=== PATIENT | male | born 1945 | race Caucasian/White ===

== ENCOUNTER 2016-07-11 17:03 | Inpatient (IN) | payer MEDICARE, OTHER ==
--- NOTE | ~2016-07-11 | CN ---
Consultation Report [facility] [address] [place]. [address] NAME: SOM JUSTIN JR : 49 STATUS : ADM IN PAT#: [id number] AGE: 71 ADM/REG DATE : 07/12/16 MR#: [id number] REPORT SERV DATE: 07/13/16 DICTATED BY: ALPHONSO ELIAS DATE: 07/13/16 REPORT STATUS : Draft TRANSCRIBED BY: YNES DATE: 07/13/16 DATE OF CONSULTATION: 07/13/2016 REASON FOR ADMISSION: Presyncope/fatigue/dyspnea. HISTORY OF PRESENT ILLNESS: Mr. Justin is a pleasant 71-year-old gentleman with a history of diabetes, hypertension, hyperlipidemia, and hypothyroidism, who presented to [facility] yesterday with symptoms of presyncope as well as pronounced fatigue and shortness of breath over the past several weeks. He noted that approximately four to five weeks ago, he developed an upper respiratory infection and possibly the flu, with fevers and chills and sweats. These symptoms resolved over a two-week course, however, over the past one to two weeks, he has been feeling extremely tired and unable to complete his day-to-day activities. He does not have any chest pains or pressures as far as his last two weeks of activity, however, today, during his stress test, he had exertion related angina that was relieved at rest. In speaking with him in more detail, he does endorse having exertion related dyspnea as well as worsening of his dizziness. Accordingly, he has limited his physical activities so as not to feel these symptoms. He does have a family history significant for heart disease in his mother, however, details are unknown. He, otherwise has no new complaints and would like to figure out why he is feeling dizzy and almost like he is going to pass out as well as significantly fatigued and short of breath. ALLERGIES: HYPERSENSITIVITY TO NSAIDS, HOWEVER, NOT A TRUE ALLERGY. NO OTHER ALLERGIES. PAST MEDICAL HISTORY: As above. SOCIAL HISTORY: The patient lives at home with his . He functions independently under normal circumstances. He is a former regular drinker, however, now he only drinks socially. Denies drugs or smoking currently. He does have a remote history of two years of smoking. FAMILY HISTORY: Significant for heart disease (unknown details) in his mother who was diagnosed around her early 60s. REVIEW OF SYSTEMS: As above, all other systems otherwise negative. PHYSICAL EXAMINATION: VITAL SIGNS: BP 134/89; HR 82; temperature 97.5, afebrile. GENERAL: Well developed, well nourished, no acute distress. NEURO: Awake, alert and oriented x3; no focal deficits, appropriate mood. HEENT: Moist mucous membranes, anicteric sclerae, no nasal discharge. NECK: No JVD, no carotid bruit. LUNGS: Clear to auscultation bilaterally, no wheezes, rales or rhonchi. CV: Regular rhythm, normal S1/S2, no murmurs, rubs or gallops. ABD: Soft, non-tender, non-distended, no rebound or guarding. EXT: Cool with trace edema in his lower extremities bilaterally with, 1+ peripheral pulses Consultation Report [facility] [address] [place]. [address] NAME: SOM JUSTIN JR : 49 STATUS : ADM IN [facility]#: [id number] AGE: 71 ADM/REG DATE : 07/12/16 MR#: [id number] REPORT SERV DATE: 07/13/16 DICTATED BY: ALPHONSO ELIAS DATE: 07/13/16 REPORT STATUS : Draft TRANSCRIBED BY: YNES DATE: 07/13/16 in his lower extremities bilaterally. SKIN: Warm, dry and intact; no rash. PERTINENT TEST FINDINGS: Potassium 4.0, creatinine 0.79, GFR 106. Magnesium 1.8. White blood cell count 5.1, hemoglobin 13.2, platelets 164. CTA of the chest reviewed by me personally demonstrates coronary calcification in the LAD as well as the left circumflex artery. The right coronary artery is not well visualized. The study was not optimized for coronary assessment. EKG from date of admission shows sinus rhythm with right bundle branch block, left axis deviation, left anterior fascicular block, bifascicular block, inferior infarct. Telemetry without significant events. Stress test from today with moderate risk. Normal perfusion images, however, only reached stage II of exercise. Echocardiogram with normal biventricular function and no significant valvular disease. IMPRESSION AND PLAN: Mr. Justin is a pleasant 71-year-old gentleman with a history of diabetes, hypertension, hyperlipidemia, and newly diagnosed coronary artery disease, as my review of the CTA of his chest this admission with bifascicular block (right bundle branch block and left anterior fascicular block) on EKG, who presents with nonspecified symptoms including presyncope, fatigue, exertion related dyspnea, exertion related dizziness, and not feeling well over the past several weeks that has been progressive in nature. Given his unclear symptoms with atypical as well as typical features and high risk markers including, but not limited to, bifascicular block, presence of coronary calcifications that is significant in the left anterior descending and left circumflex on my review of the CT as well as some exertion related worsening of his dyspnea and dizziness, I do feel that he warrants a definitive arteriogram at this time. I note that he had normal perfusion images on his stress test this morning, however, again this was a very sub-maximal test as he only reached stage II of exercise. Accordingly, I have the following recommendations for problems below: 1. Dyspnea on exertion/dizziness: Plan for coarctation of the aorta with possible percutaneous coronary intervention. I have consulted Urology (Dr. Florian) to provide recommendations with regard to specific anti-platelet agent duration in light of upcoming prostate procedure. Otherwise, risks and benefits of coronary arteriogram have been discussed in detail with the patient and his including, but not limited to myocardial infarction, , stroke, kidney injury, and the patient is amenable with proceeding. I have made him n.p.o. past midnight and scheduled him for this procedure accordingly. 2. Coronary artery disease: New diagnosis as of my review of the CTA of the chest from today. This is not gated study, therefore it is not optimal for coronary assessment. That being said, he does have clear coronary calcifications of his left anterior Consultation Report [facility] [address] [place]. [address] NAME: SOM JUSTIN : 49 STATUS : ADM IN PAT#: [id number] AGE: 71 ADM/REG DATE : 07/12/16 MR#: [id number] REPORT SERV DATE: 07/13/16 DICTATED BY: ALPHONSO ELIAS DATE: 07/13/16 REPORT STATUS : Draft TRANSCRIBED BY: YNES DATE: 07/13/16 descending and left circumflex artery. Continue aspirin as well as Lipitor 20 mg nightly. His lipids will have to be optimized to a new risk level. Otherwise, no further treatment outside of dyspnea on exertion/dizziness. 3. Hypertension: Controlled. 4. Diabetes: Per primary physician. 5. Lightheadedness/presyncope: As per dyspnea on exertion/dizziness. In addition, workup per primary service if noncardiac cause becomes more clear after his arteriogram tomorrow. 6. Bifascicular block: He has findings of a right bundle branch block/left anterior fascicular block/inferior infarct on his EKG. He does not have any atrioventricular block on his tele review or on his EKGs. These are stable problems as of now, and again, underscore the importance of working up dyspnea on exertion/dizziness. VR/MODL Alphonso Elias MD / [id number] CC: MD MARTITA Loja MARGARET
--- NOTE | ~2016-07-11 | DS ---
Discharge Summary [facility] [address] [place]. [address] NAME: SOM JUSTIN JR : 49 STATUS : ADM IN [facility]#: [id number] AGE: 71 ADM/REG DATE : 07/12/16 MR#: [id number] REPORT SERV DATE: 07/16/16 DICTATED BY: DATE: REPORT STATUS : Draft TRANSCRIBED BY: MODL DATE: 07/16/16 ADMISSION DATE: 07/12/2016 DISCHARGE DATE: 07/16/2016 DISCHARGE DIAGNOSES: 1. Presyncopal episodes. 2. Hypertension. 3. Diabetes mellitus type 2. 4. Hypothyroid. 5. Anemia. 6. Hyperlipidemia. 7. Thrombocytopenia. PROCEDURES AND IMAGIN. CT of the brain without contrast on 07/11/2016, showed no acute infarct or hemorrhage. 2. On 07/11/2016, chest PA and lateral showed no acute pathology, this was compared to CTA of the chest that showed no significant emphysema or interstitial disease. 3. On 07/12/2016 carotid ultrasounds showed left and right carotid artery one less than 50% luminal stenosis, right vertebral antegrade, subclavian velocity is 10 3 cm/sec, left vertebral antegrade subclavian velocity 1 19 cm/sec normal. 4. On 07/12/2016, MRI of the brain without contrast showed no acute infarct or bleed, mastoiditis, and some mid brain atrophy. CONSULTATIONS: Dr. Schmidt and Dr. Ortiz with Cardiology. HOSPITAL COURSE: The patient presented to the [facility] ER with symptoms of presyncope, as well as pronounced fatigue, and shortness of breath times several weeks. The patient was previously ill with an upper respiratory infection that included fevers, chills, and sweats over a month ago. Please see H and P dictation from 07/11/2016 by Ken Trejo MD and consultation note from 07/13/[address] Schmidt. During the patient's stay here, he has not had any more episodes of syncope or vertigo. The patient's orthostatic blood pressures remained consistent with lying being 129/72, sitting 136/81, and standing 129/72. The patient was started on Coreg last evening and has had no changes in his symptomology. PHYSICAL EXAMINATION: VITAL SIGNS: Blood pressure 125/77, heart rate is 84, O2 saturation is 95% on room, temperature is 97.7, and respirations are 16. HEENT: Head is atraumatic and normocephalic. Pupils equal, round, reactive to light and accommodation. Sclerae are clear and nonicteric. Good dentition. NECK: No palpable lymphadenopathy or thyromegaly. Neck veins are flat. Neck is supple. CARDIAC: No obvious murmurs, rubs, or gallops. S1 and S2 present. LUNGS: Lungs are clear bilaterally with normal respiratory effort. GASTROINTESTINAL: Abdomen is soft, and nontender with active bowel sounds in all four quadrants. Normal bowel habitus. No palpable organomegaly. EXTREMITIES: No significant edema, clubbing, or cyanosis. Dorsalis pedis and posterior tibial pulses are present and equal bilaterally. Discharge Summary [id number] [place]. [address] NAME: SOM JUSTIN JR : 49 STATUS : ADM IN [facility]#: [id number] AGE: 71 ADM/REG DATE : 07/12/16 MR#: [id number] REPORT SERV DATE: 07/16/16 DICTATED BY: DATE: REPORT STATUS : Draft TRANSCRIBED BY: MODL DATE: 07/16/16 MUSCULOSKELETAL: The patient moves all extremities x4. He is ambulatory without assistance. Denies difficulty with balance. SKIN: Dry and intact with normal color and turgor. NEURO/PSYCH: The patient is alert and oriented x4, pleasant, cooperative. Cranial nerves 2 through 12 are grossly intact. DISCHARGE DIET: The patient is eating well. Discharge diet will be 1800 calorie cardiac diet. DISCHARGE MEDICATIONS: Xanax 0.25 mg daily, aspirin 81 mg daily, Wellbutrin 450 mg daily, Coreg 3.125 mg p.o. b.i.d., Clopidogrel 75 mg daily, cyanocobalamin 1000 mcg daily, Avodart 0.5 mg daily, levothyroxine 50 mcg daily, lisinopril 10 mg daily, melatonin 10 mg daily, Nexium 40 mg twice daily, Flomax 0.4 mg daily, metformin 500 mg twice daily, Lunesta 3 mg daily, and Crestor 20 mg daily. ALLERGIES: THE PATIENT HAS A SENSITIVITY TO NSAIDS AND ASPIRIN. DISCHARGE INSTRUCTIONS: The patient is to follow up in one month with Dr. Schmidt. The patient is to call Dr. Schmidt on Monday to find out whether he is supposed to continue his Plavix as a prescription was not written, so, I have written one for a 10 day, so, this needs to be clarified with Cardiology. The patient is to follow up at the ER if he has any continuing bouts of syncope, chest pain, or other issues, or to call his PCP or Dr. Schmidt. Approximately 25 minutes has been spent coordinating discharge care of this patient including [id number] encounter, summarization of the discharge, and coordinating care of discharge. WALLACE/BURAKL Mariella Villafana NP / [id number] CC: MD MARTITA Hamm MARGARET
--- NOTE | ~2016-07-11 | HP ---
History And Physical [place] [address] [place]. [address] NAME: SOM JUSTIN JR : 49 STATUS : ADM Luis Carlos PAT#: [id number] AGE: 71 ADM/REG DATE : 07/11/16 MR#: [id number] REPORT SERV DATE: 07/12/16 DICTATED BY: KEN ACHARYA DATE: 07/11/16 REPORT STATUS : Draft TRANSCRIBED BY: MODMuriel DATE: 07/11/16 DATE OF ADMISSION: 07/11/2016 CHIEF COMPLAINT: Presyncopal episode. HISTORY OF PRESENT ILLNESS: This is a 71-year-old gentleman with history of hypertension, diabetes, hyperlipidemia, hypothyroidism, presenting with presyncopal episodes. The patient reports that he actually went over a flu about four weeks ago and that is when his episodes started occurring. His flu actually lasted about two weeks and after the 2 weeks, the patient was still short of breath and extremely fatigued and has been having presyncopal episodes and thus, he went to see his PCP. His PCP ordered a chest x-ray, followed by a CTA of the chest which showed mild aneurysmal changes and tortuous aorta as well as evidence for possible pulmonary hypertension. The patient now has a followup appointment with Dr. Ward as well as an echocardiogram that is scheduled to be done as an outpatient tomorrow. The patient went to see his PCP for a followup today and at the office, the patient had a presyncopal episode after taking a deep breath. The patient was thus referred to the ER for further evaluation and care. As far as the pre-syncopal episodes go, it is not related to bodily position, but more related to physical exertion. The patient does not have any chest pains. Denies any fevers or chills. The patient does have occasional palpitations with presyncopal episodes and his main symptom is extreme fatigue. The patient denies shortness of breath per Se, although he does have a mild dyspnea on exertion. In the ER, the patient was found to be afebrile and hemodynamically stable. Initial lab evaluation was all fairly benign. Internal Medicine consultation was requested for admission of the patient to be admitted for further evaluation and care. REVIEW OF SYSTEMS: Patient denies any fevers or chills. Also, 14-point review of systems reviewed and negative other than mentioned above. MEDICATIONS: 1. Xanax 0.25 mg p.o. daily. 2. Aspirin 81 mg p.o. daily. 3. Wellbutrin 450 mg p.o. daily. 4. Vitamin B12 1000 mcg p.o. daily. 5. Vitamin B12 1000 mcg IM every 30 days. 6. Avodart 0.5 mg p.o. daily. 7. Nexium 40 mg p.o. b.i.d. 8. Lunesta 3 mg p.o. at bedtime. 9. Levothyroxine 50 mcg p.o. daily. 10.Lisinopril 10 mg p.o. daily. 11.Melatonin 10 mg p.o. at bedtime. 12.Metformin 500 mg p.o. b.i.d. 13.Crestor 10 mg p.o. at bedtime. 14.Flomax 0.4 mg p.o. daily. History And Physical [address] [address] NAME: SOM JUSTIN VIVIAN ANDERSON : 49 STATUS : ADM Luis Carlos PAT#: [id number] AGE: 71 ADM/REG DATE : 07/11/16 MR#: [id number] REPORT SERV DATE: 07/12/16 DICTATED BY: KEN ACHARYA DATE: 07/11/16 REPORT STATUS : Draft TRANSCRIBED BY: YNES DATE: 07/11/16 ALLERGIES: 1. ASPIRIN. 2. NSAIDS. PAST MEDICAL HISTORY: 1. Hypertension. 2. Hypothyroidism. 3. Diabetes type 2. 4. Hyperlipidemia. 5. BPH. 6. Gastritis. PAST SURGICAL HISTORY: 1. Left shoulder surgery. 2. Hernia repairs. 3. Left knee arthroscopy. FAMILY HISTORY: 1. Heart diseases. 2. Kidney diseases. 3. Colon and breast cancer. 4. Dementia. SOCIAL HISTORY: The patient does not smoke, consumes alcohol rarely. The patient is at home with his and his is at bedside here in the ER. PHYSICAL EXAMINATION: VITAL SIGNS: Temperature 98.4, blood pressure 115/79, pulse 109, respiratory rate is 21 saturating 96% on room air. Patient is alert and oriented x3 with no focal neurologic deficits. GENERAL: The patient is awake, does not appear to be in acute distress, and he is cooperative. NECK: No JVD. No lymphadenopathy. Normal thyroid. CHEST: No midline sternotomy scar and no tenderness to palpation. LUNGS: Clear to auscultation bilaterally with normal respiratory effort on room air. CARDIOVASCULAR: The patient is slightly tachycardic, but otherwise, no murmurs, rubs, or gallops, and PMI is nondisplaced. ABDOMEN: Soft, nontender, with active bowel sounds and no organomegaly. EXTREMITIES: No edema. Normal distal pulses. No calf tenderness. SKIN: Clean, dry, warm, and intact. LABORATORY DATA: Sodium is 137, potassium 4.0, chloride 102, BUN 9, creatinine 0.73, glucose 95, calcium 9.4, magnesium 1.8. White blood cell count is 5.1, hemoglobin 13.4, platelets 182. INR is 1.2. Troponin is less than 0.02. Urinalysis is negative. CT of the head was nonacute. CTA of the chest showed a mild fusiform aneurysmal change of the tortuous ascending thoracic aorta measuring 3.7 cm in diameter. The patient also had tortuous aortic arch and descending thoracic aorta, although there were no aneurysmal changes or dissections there. The patient also was found to have enlarged main pulmonary artery measuring 3.5 cm History And Physical [address] [address] NAME: SOM JUSTIN : 49 STATUS : ADM Luis Carlos PAT#: [id number] AGE: 71 ADM/REG DATE : 07/11/16 MR#: [id number] REPORT SERV DATE: 07/12/16 DICTATED BY: KEN ACHARYA DATE: 07/11/16 REPORT STATUS : Draft TRANSCRIBED BY: MODL DATE: 07/11/16 in diameter consistent with CT evidence of pulmonary arterial hypertension. There were no other acute abnormal findings. CTA of the chest is performed on 06/29/2016. ASSESSMENT AND PLAN: This is a 71-year-old gentleman with history of hypertension, diabetes, hyperlipidemia, presenting with presyncopal episodes. 1. Presyncopal episodes with CTA findings consistent with pulmonary hypertension. 2. Hypertension. 3. Hypothyroidism. 4. Diabetes type 2. 5. Hyperlipidemia. 6. Gastritis. 7. BPH. PLAN: The plan is to admit the patient for observation overnight. The patient will be monitored under telemetry. I will check serial troponins. The patient will be given gentle IV fluid resuscitation and I will also go ahead and check an echocardiogram. I am awaiting the results of the echocardiogram and his telemetry over night. The patient will likely need a Cardiology or Pulmonology consultation. For the rest of stable past medical conditions, including hypertension, diabetes, hypothyroidism, et al., I will continue home medications. Standard DVT prophylaxis. The patient is full code at this time. YSC/YNES Ken Acharya MD / [id number]
[~2016-07-11 17:03] MED LIST: AMB10 PO; AVODART PO; BUPROBAN150 MG; FLOMAX4 PO; GLUCPH PO; LEVOTHROID50 MCG PO; NEXIUM40 PO; NIRAVAM0.25 MG PO; PRIN10 PO; ZOCOR40 PO; [UNRECOGNIZED DRUG - OTHER]; [UNRECOGNIZED DRUG - OTHER]
[2016-07-11 18:02] LABS: BASOPHILS 0.4 %; BASOPHILS ABSOLUTE 0.02 10/3/uL (0.0-0.16); EOSINOPHILS 1.2 %; EOSINOPHILS ABSOLUTE 0.06 10/3/uL (0.0-0.53); ER CBC TAT 0 Hrs 08 Mins; HEMATOCRIT 40.1 % (40.0-51.0); HEMOGLOBIN 13.4 g/dL (13.6-17.8); IMMATURE GRANULOCYTES 0.6 %; IMMATURE GRANULOCYTES ABSOLUTE 0.03 10/3/uL (0.0-0.11); LYMPHOCYTES 34.8 %; LYMPHOCYTES ABSOLUTE 1.77 10/3/uL (0.67-4.30); MANUAL DIFF NO %; MEAN CORPUS HGB CONC 33.4 g/dL (32.0-36.0); MEAN CORPUSCULAR HEMOGLOB 26.3 pg (26.0-34.0); MEAN CORPUSCULAR VOLUME 78.8 fL (80-100); MEAN PLATELET VOLUME 9.4 fL (9.2-13.0); MONOCYTES 7.3 %; MONOCYTES ABSOLUTE 0.37 10/3/uL (0.21-1.20); NEUTROPHILS 55.7 %; NEUTROPHILS ABSOLUTE 2.83 10/3/uL (2.02-8.40); PLATELET COUNT 182 10/3/uL (150-400); RBC DISTRIBUTION WIDTH 14.9 % (12.0-16.0); RED CELL COUNT 5.09 10/6/uL (4.7-6.1); WHITE BLOOD CELLS 5.1 10/3/uL (4.5-10.5)
[2016-07-11 18:09] LABS: INTERNATIONAL NORMAL RATI 1.2 UNITS (-); PARTIAL THROMBO TIME 32.2 SEC (22.5-37.2); PROTIME (NOT ORD) 14.7 SEC (12.0-14.5)
[2016-07-11 18:15] LABS: BUN (BLOOD UREA NITROGEN) 9 MG/DL (6-23); CALCIUM, SERUM 9.4 MG/DL (8.5-10.4); CHEST PAIN PROFILE TAT 0 Hrs 21 Mins; CHLORIDE, SERUM 102 MMOL/L (96-112); CO2 (CARBON DIOXIDE) 27 MMOL/L (24-34); CREATININE 0.73 MG/DL (0.70-1.30); GFR AFRICAN AMERICAN 110 ML/MIN (>=60); GFR NON AFRICAN AMERICAN 95 ML/MIN (>=60); GLUCOSE, SERUM 95 MG/DL (60-99); SODIUM, SERUM 137 MMOL/L (135-148); TROPONIN I <0.02 NG/ML (<0.05)
[2016-07-11 19:13] LABS: ASCORBIC ACID (UR NOT ORDER) NEG (NEG); BILIRUBIN, URINE NEGATIVE (NEG); ER URINALYSIS TAT 0 Hrs 18 Mins; KETONE, URINE NEGATIVE (NEG); LEUKOCYTE ESTERASE(NOT OR NEG (NEG); NITRITE (URINE) NEG (NEG); WBC (NOT ORDERED) (RFLEX) < 1 (0-5)
[2016-07-11] MEDS ORDERED: ASAB PO (20:08)
[2016-07-11] MEDS ORDERED: MELATONIN10 M2 PO (20:09)
[2016-07-11] MEDS ORDERED: B121000P IM (20:09)
[2016-07-11] MEDS ORDERED: LEVOTHYROXIN50 MCG PO (20:09)
[2016-07-11] MEDS ORDERED: CYANO1000T PO (20:09)
[2016-07-11] MEDS ORDERED: NEXIUM40 PO (20:10)
[2016-07-11] MEDS ORDERED: GLUCPH PO (20:10)
[2016-07-11] MEDS ORDERED: FLOMAX4 PO (20:10)
[2016-07-11] MEDS ORDERED: X25 PO (20:10)
[2016-07-11] MEDS ORDERED: CRESTOR10 PO (20:10)
[2016-07-11] MEDS ORDERED: LUNESTA3 MG PO (20:10)
[2016-07-11] MEDS ORDERED: AVODART PO (20:11)
[2016-07-11] MEDS ORDERED: PRIN10 PO (20:11)
[2016-07-11] MEDS ORDERED: WELLXL150 PO (20:11)
[2016-07-12 05:57] LABS: BASOPHILS 0.4 %; BASOPHILS ABSOLUTE 0.02 10/3/uL (0.0-0.16); EOSINOPHILS 1.4 %; EOSINOPHILS ABSOLUTE 0.07 10/3/uL (0.0-0.53); HEMATOCRIT 39.8 % (40.0-51.0); HEMOGLOBIN 13.2 g/dL (13.6-17.8); IMMATURE GRANULOCYTES 0.4 %; IMMATURE GRANULOCYTES ABSOLUTE 0.02 10/3/uL (0.0-0.11); LYMPHOCYTES 38.8 %; LYMPHOCYTES ABSOLUTE 1.98 10/3/uL (0.67-4.30); MEAN CORPUS HGB CONC 33.2 g/dL (32.0-36.0); MEAN CORPUSCULAR HEMOGLOB 26.3 pg (26.0-34.0); MEAN CORPUSCULAR VOLUME 79.4 fL (80-100); MEAN PLATELET VOLUME 9.4 fL (9.2-13.0); MONOCYTES 7.1 %; MONOCYTES ABSOLUTE 0.36 10/3/uL (0.21-1.20); NEUTROPHILS 51.9 %; NEUTROPHILS ABSOLUTE 2.65 10/3/uL (2.02-8.40); PLATELET COUNT 164 10/3/uL (150-400); RED CELL COUNT 5.01 10/6/uL (4.7-6.1); WHITE BLOOD CELLS 5.1 10/3/uL (4.5-10.5)
[2016-07-12 05:58] LABS: MANUAL DIFF NO %
[2016-07-12 06:18] LABS: BUN (BLOOD UREA NITROGEN) 12 MG/DL (6-23); CALCIUM, SERUM 9.4 MG/DL (8.5-10.4); CHLORIDE, SERUM 105 MMOL/L (96-112); CO2 (CARBON DIOXIDE) 27 MMOL/L (24-34); CREATININE 0.79 MG/DL (0.70-1.30); GFR AFRICAN AMERICAN 106 ML/MIN (>=60); GFR NON AFRICAN AMERICAN 92 ML/MIN (>=60); GLUCOSE, SERUM 97 MG/DL (60-99); SODIUM, SERUM 140 MMOL/L (135-148); TROPONIN I <0.02 NG/ML (<0.05)
[2016-07-14 05:52] LABS: BASOPHILS 0.4 %; BASOPHILS ABSOLUTE 0.02 10/3/uL (0.0-0.16); EOSINOPHILS 0.9 %; EOSINOPHILS ABSOLUTE 0.05 10/3/uL (0.0-0.53); HEMATOCRIT 40.8 % (40.0-51.0); HEMOGLOBIN 13.5 g/dL (13.6-17.8); IMMATURE GRANULOCYTES 0.4 %; IMMATURE GRANULOCYTES ABSOLUTE 0.02 10/3/uL (0.0-0.11); LYMPHOCYTES ABSOLUTE 1.49 10/3/uL (0.67-4.30); MEAN CORPUS HGB CONC 33.1 g/dL (32.0-36.0); MEAN CORPUSCULAR HEMOGLOB 26.5 pg (26.0-34.0); MEAN PLATELET VOLUME 9.8 fL (9.2-13.0); MONOCYTES 9.6 %; MONOCYTES ABSOLUTE 0.51 10/3/uL (0.21-1.20); NEUTROPHILS 60.7 %; NEUTROPHILS ABSOLUTE 3.23 10/3/uL (2.02-8.40); PLATELET COUNT 137 10/3/uL (150-400); RBC DISTRIBUTION WIDTH 14.8 % (12.0-16.0); WHITE BLOOD CELLS 5.3 10/3/uL (4.5-10.5)
[2016-07-14 05:54] LABS: MANUAL DIFF NO %
[2016-07-14 06:01] LABS: INTERNATIONAL NORMAL RATI 1.2 UNITS (-); PROTIME (NOT ORD) 15.2 SEC (12.0-14.5)
[2016-07-14 06:12] LABS: BUN (BLOOD UREA NITROGEN) 12 MG/DL (6-23); CALCIUM, SERUM 9.5 MG/DL (8.5-10.4); CHLORIDE, SERUM 102 MMOL/L (96-112); CHOL/HDL RATIO(NOT ORDER) 3.3 (0-5); CHOLESTEROL 162 MG/DL (< 200); CO2 (CARBON DIOXIDE) 25 MMOL/L (24-34); CREATININE 0.84 MG/DL (0.70-1.30); GFR AFRICAN AMERICAN 104 ML/MIN (>=60); GFR NON AFRICAN AMERICAN 89 ML/MIN (>=60); GLUCOSE, SERUM 100 MG/DL (60-99); HDL CHOLESTEROL 49 MG/DL (> 39); LDL CHOLESTEROL 69 MG/DL (< 130); NON-HDL CHOLESTEROL 113 MG/DL (< 160); SODIUM, SERUM 138 MMOL/L (135-148); TRIGLYCERIDE 220 MG/DL (< 150)
[2016-07-15 07:12] LABS: BASOPHILS 0.7 %; BASOPHILS ABSOLUTE 0.03 10/3/uL (0.0-0.16); EOSINOPHILS 0.9 %; EOSINOPHILS ABSOLUTE 0.04 10/3/uL (0.0-0.53); HEMOGLOBIN 13.3 g/dL (13.6-17.8); IMMATURE GRANULOCYTES 0.2 %; IMMATURE GRANULOCYTES ABSOLUTE 0.01 10/3/uL (0.0-0.11); LYMPHOCYTES 26.9 %; LYMPHOCYTES ABSOLUTE 1.17 10/3/uL (0.67-4.30); MEAN CORPUS HGB CONC 33.3 g/dL (32.0-36.0); MEAN CORPUSCULAR HEMOGLOB 26.5 pg (26.0-34.0); MEAN CORPUSCULAR VOLUME 79.8 fL (80-100); MEAN PLATELET VOLUME 10.2 fL (9.2-13.0); MONOCYTES 8.7 %; MONOCYTES ABSOLUTE 0.38 10/3/uL (0.21-1.20); NEUTROPHILS 62.6 %; NEUTROPHILS ABSOLUTE 2.72 10/3/uL (2.02-8.40); PLATELET COUNT 115 10/3/uL (150-400); RBC DISTRIBUTION WIDTH 14.9 % (12.0-16.0); RED CELL COUNT 5.01 10/6/uL (4.7-6.1); WHITE BLOOD CELLS 4.4 10/3/uL (4.5-10.5)
[2016-07-15 07:15] LABS: MANUAL DIFF NO %
[2016-07-15 07:18] LABS: INTERNATIONAL NORMAL RATI 1.1 UNITS (-); PROTIME (NOT ORD) 14.4 SEC (12.0-14.5)
[2016-07-15 07:24] LABS: BUN (BLOOD UREA NITROGEN) 12 MG/DL (6-23); CALCIUM, SERUM 9.4 MG/DL (8.5-10.4); CHLORIDE, SERUM 102 MMOL/L (96-112); CO2 (CARBON DIOXIDE) 25 MMOL/L (24-34); GLUCOSE, SERUM 108 MG/DL (60-99); POTASSIUM, SERUM 3.8 MMOL/L (3.5-5.3); SODIUM, SERUM 138 MMOL/L (135-148)
[2016-07-15 07:29] LABS: CHOL/HDL RATIO(NOT ORDER) 3.2 (0-5); CHOLESTEROL 161 MG/DL (< 200); CREATININE 0.89 MG/DL (0.70-1.30); GFR AFRICAN AMERICAN 101 ML/MIN (>=60); GFR NON AFRICAN AMERICAN 87 ML/MIN (>=60); HDL CHOLESTEROL 51 MG/DL (> 39); LDL CHOLESTEROL 71 MG/DL (< 130); NON-HDL CHOLESTEROL 110 MG/DL (< 160); TRIGLYCERIDE 196 MG/DL (< 150)
[2016-07-16 06:35] LABS: BUN (BLOOD UREA NITROGEN) 13 MG/DL (6-23); CALCIUM, SERUM 9.3 MG/DL (8.5-10.4); CHLORIDE, SERUM 104 MMOL/L (96-112); CO2 (CARBON DIOXIDE) 26 MMOL/L (24-34); CREATININE 0.93 MG/DL (0.70-1.30); GFR AFRICAN AMERICAN 97 ML/MIN (>=60); GFR NON AFRICAN AMERICAN 83 ML/MIN (>=60); GLUCOSE, SERUM 95 MG/DL (60-99); SODIUM, SERUM 139 MMOL/L (135-148)
[2016-07-16 06:51] LABS: BASOPHILS 0.6 %; BASOPHILS ABSOLUTE 0.03 10/3/uL (0.0-0.16); EOSINOPHILS 0.6 %; EOSINOPHILS ABSOLUTE 0.03 10/3/uL (0.0-0.53); HEMATOCRIT 39.2 % (40.0-51.0); HEMOGLOBIN 12.9 g/dL (13.6-17.8); LYMPHOCYTES 25.6 %; LYMPHOCYTES ABSOLUTE 1.25 10/3/uL (0.67-4.30); MEAN CORPUS HGB CONC 32.9 g/dL (32.0-36.0); MEAN CORPUSCULAR VOLUME 78.9 fL (80-100); MEAN PLATELET VOLUME 10.8 fL (9.2-13.0); MONOCYTES 13.3 %; MONOCYTES ABSOLUTE 0.65 10/3/uL (0.21-1.20); NEUTROPHILS 59.9 %; NEUTROPHILS ABSOLUTE 2.93 10/3/uL (2.02-8.40); PLATELET COUNT 122 10/3/uL (150-400); RBC DISTRIBUTION WIDTH 15.3 % (12.0-16.0); RED CELL COUNT 4.97 10/6/uL (4.7-6.1); WHITE BLOOD CELLS 4.9 10/3/uL (4.5-10.5)
[2016-07-16 06:52] LABS: MANUAL DIFF NO %
[2016-07-16] MEDS ORDERED: PLAVIX PO (11:13)
[2016-07-16] MEDS ORDERED: COREG3 PO (11:14)
[2016-07-16] MEDS ORDERED: LIPITOR20 PO (11:25)
[2016-08-22] MEDS ORDERED: WELLXL150 PO (18:35)
[2016-08-22] MEDS ORDERED: HALF81 PO (18:35)
[2016-08-22] MEDS ORDERED: LIPITOR20 PO (18:35)
[2016-08-22] MEDS ORDERED: FLOMAX4 PO (18:35)
[2016-08-22] MEDS ORDERED: BACLOFEN20 MG PO (18:35)
[2016-08-22] MEDS ORDERED: CYANO1000T PO (18:36)
[2016-08-22] MEDS ORDERED: COREG3 PO (18:36)
[2016-08-22] MEDS ORDERED: AVODART PO (18:36)
[2016-08-22] MEDS ORDERED: PLAVIX PO (18:36)
[2016-08-22] MEDS ORDERED: LUNESTA3 MG PO (18:37)
[2016-08-22] MEDS ORDERED: LEVOTHYROXIN50 MCG PO (18:37)
[2016-08-22] MEDS ORDERED: NEXIUM40 PO (18:37)
[2016-08-22] MEDS ORDERED: NORCO1 TAB PO (18:37)
[2016-08-22] MEDS ORDERED: NEUR100 PO (18:37)
[2016-08-22] MEDS ORDERED: MELATONIN5 M1 PO (18:38)
[2016-08-22] MEDS ORDERED: T PO (18:38)
[2016-08-22] MEDS ORDERED: GLUCPH PO (18:38)
[2016-08-22] MEDS ORDERED: PRIN10 PO (18:38)
== END 2016-07-16 12:40 | disposition home or self-care (01) | DRG 287 ==
LOC: ER 17:03 → CDU1 20:49 → 6NO 07-13 22:33
PROVIDERS: Internal Medicine; Nurse Practitioner; Physician Assistant; Student in an Organized Health Care Education/Training Program
PROC: 4A023N7 Measurement of Cardiac Sampling and Pressure, Left Heart, Percutaneous Approach (ICD-10-PCS; principal; 2016-07-14)
PROC: B2111ZZ Fluoroscopy of Multiple Coronary Arteries using Low Osmolar Contrast (ICD-10-PCS; 2016-07-14)
PROC: B2151ZZ Fluoroscopy of Left Heart using Low Osmolar Contrast (ICD-10-PCS; 2016-07-14)
DX: R55 Syncope and collapse (principal); D69.6 Thrombocytopenia, unspecified; I27.2 Other secondary pulmonary hypertension; I10 Essential (primary) hypertension; E11.9 Type 2 diabetes mellitus without complications; D64.9 Anemia, unspecified; I45.2 Bifascicular block; I25.10 Atherosclerotic heart disease of native coronary artery without angina pectoris; E03.9 Hypothyroidism, unspecified; E78.5 Hyperlipidemia, unspecified; G47.33 Obstructive sleep apnea (adult) (pediatric); E66.9 Obesity, unspecified; Z79.02 Long term (current) use of antithrombotics/antiplatelets; Z68.32 Body mass index [BMI] 32.0-32.9, adult; Z87.891 Personal history of nicotine dependence; K21.9 Gastro-esophageal reflux disease without esophagitis; F41.9 Anxiety disorder, unspecified; F32.9 Major depressive disorder, single episode, unspecified
CPT/HCPCS: 70450; 70551; 71020; 78452; 80048; 80061; 81001; 82962; 83735; 84443; 84484; 85025; 85610; 85730; 93005; 93017; 93306; 93458; 93880; 99152; 99153; 99285; A9270-GY; A9502; C1769; C1887; C1894; G0463; J2250; J3010; Q9967

== ENCOUNTER 2016-08-22 23:19 | Inpatient (IN) | payer MEDICARE, OTHER ==
--- NOTE | ~2016-08-22 | TEE ---
Transesophageal Echocardiogram [facility] [address] [place]. [address] NAME: SOM JUSTIN JR : 49 STATUS : ADM IN PAT#: [id number] AGE: 71 ADM/REG DATE : 08/22/16 MR#: [id number] REPORT SERV DATE: 08/29/16 DICTATED BY: XAVIER JOSHI DATE: 08/29/16 REPORT STATUS : Draft TRANSCRIBED BY: MODMuriel DATE: 08/29/16 REQUESTING PROVIDER: Dr. Woods from Infectious Disease and Dr. Alphonso Schmidt of Cardiology. INDICATIONS: A 71-year-old male with 4/4 gram positive cocci bacteremia for TEODORO to further assess for valvular vegetation. PROCEDURES PERFORMED: 2D, 3D, color, and spectral Doppler. 3D interrogation of the mitral valve was performed with personal online manual manipulation of 3D data set to further assess mitral valve anatomy and suspected vegetation. Informed consent was obtained, signed on the chart prior to proceeding. A time-out was performed. Sedation was per Anesthesia and esophageal intubation was without difficulty. TECH: TD. RECORDING QUALITY: The overall quality of the study was adequate. FINDINGS: Valves: 1. The mitral valve morphology was normal with fully mobile leaflets. The was an unusual thickening of the anterior mitral leaflet, A2 segment tip, with borderline-mild prolapse suggestive of a possible small mitral vegetation. This area was associated with mild mitral regurgitation. There was concern for off axis interrogation of this area and a followup 3D images confirmed abnormal thickening of the tip of the A2 segment of the anterior mitral leaflet suggestive of possible valvular vegetation versus chronic degenerative changes. 2. The aortic valve morphology was trileaflet with adequate mobility. There was mild sclerosis. There was trace aortic regurgitation. There were no valvular vegetations seen. 3. The pulmonic valve was grossly normal with adequate mobility. There was mild pulmonic regurgitation. There were no pulmonary valve vegetations seen. 4. The tricuspid valve morphology was suboptimally visualized due to the dilated aortic root and mild sclerosis, but appears grossly normal in morphology with adequate leaflet mobility. There were no valve vegetations seen. There was trivial tricuspid regurgitation. Chambers: 1. The left atrium appeared mildly dilated. There was no mass or thrombus seen. 2. The left ventricle appeared grossly normal in size with a visually estimated LVEF of 55% to 60%. There were no regional wall motion abnormalities seen. 3. The right atrium appeared grossly normal in size. Superior and inferior vena cava appeared normal. There was no mass thrombus seen. 4. The right ventricle appeared grossly normal in size and systolic function. Other: The interatrial septum was examined with multiple angulations. There was hyper- lipomatous thickening, otherwise intact with no evidence of interatrial shunt seen by color Doppler. There was no pericardial effusion. The thoracic aorta was normal in caliber with Transesophageal Echocardiogram [address] [address] NAME: SOM JUSTIN JR : 49 STATUS : ADM IN PAT#: [id number] AGE: 71 ADM/REG DATE : 08/22/16 MR#: [id number] REPORT SERV DATE: 08/29/16 DICTATED BY: XAVIER JOSHI. DATE: 08/29/16 REPORT STATUS : Draft TRANSCRIBED BY: YNES DATE: 08/29/16 no aneurysmal dilatation and no dissection. COMPLICATIONS: None. CONCLUSION: 1. ABNORMAL MITRAL VALVE WITH SUSPECTED VEGETATION VERSUS POSSIBLE CHRONIC DEGENERATIVE CHANGES OF THE ANTERIOR MITRAL LEAFLET, A2 SEGMENT, WITH MILD MITRAL REGURGITATION. 2. MILD AORTIC VALVE SCLEROSIS WITHOUT STENOSIS. 3. NORMAL LV SIZE WITH PRESERVED EF, 55% TO 60%. 4. MILD LEFT ATRIAL ENLARGEMENT. AEA/YNES Xavier Joshi M.D. / [id number]
--- NOTE | ~2016-08-22 | OP ---
Record Of Operation [facility] [address] [place]. [address] NAME: SOM JUSTIN JR : 49 STATUS : ADM IN PAT#: [id number] AGE: 71 ADM/REG DATE : 08/22/16 MR#: [id number] REPORT SERV DATE: 08/25/16 DICTATED BY: CACHORRO SALAZAR DATE: 08/24/16 REPORT STATUS : Draft TRANSCRIBED BY: MODL DATE: 08/24/16 DATE OF PROCEDURE: 08/24/2016 PREOPERATIVE DIAGNOSIS: Grade 1 spondylolisthesis, severe spinal stenosis L4-5. POSTOPERATIVE DIAGNOSIS: Grade 1 spondylolisthesis, severe spinal stenosis L4-5. PROCEDURE: 1. Microscopic navigation assisted surgery. 2. Left L4-5 hemilaminectomy, foraminotomy, and facetectomy. 3. Transforaminal diskectomy. 4. HHALL posterior column osteotomy. 5. Transforaminal diskectomy and interbody cage insertion, posterior lateral interbody fusion with local bone graft, allograft. 6. Posterior percutaneous Voyager instrumentation, L4-5. SURGEON: Cachorro Salazar D.O. ACCESS LEAD: Mj Dale. ANESTHESIA: General. BLOOD LOSS: 150 mL. INDICATIONS: Indications for surgery are noted in the consult note. In brief, this is a 71- year-old male, I had seen previously in the office. He has severe spinal stenosis at L4-5 with a grade 1 spondylolisthesis. The patient had a known coronary artery lesion and had been a lot of discussion between the staking engineer and the anesthesiologist as the appropriate preop evaluation. Meanwhile, the patient had a fall at home. He came to the ER with complete loss of sensation and weakness in the lower extremities. His symptoms were exacerbated. When I saw him after being admitted through the ER to the hospitalist, he did have some a good strength in the legs. He was supine but his pain was intractable and a repeat MRI did not show any evidence of hematoma. The MRI was obtained, mainly because he is on Plavix and aspirin and want to make sure there was no spontaneous bleeding from the fall. No hematoma was found. The patient is brought to surgery for the above procedure having failed conservative care and because of his pain so intractable, I cannot really mobilize him otherwise. I have gone over with him extensively the risk. Anesthesiologists have also gone over with great care the risks to include a major cardiac event that could result in . The usual perioperative complications could be infection injury to the thecal sac and nerve roots with numbness, tingling, weakness, and paralysis. Perioperative complications such as UTI, PE, pneumonia, KS, CVA, etc. were explained. Consent form is signed. DESCRIPTION OF PROCEDURE: Antibiotic prophylaxis was given. Neurophysiology monitoring leads inserted. The patient brought to the operative suite. General anesthetic including endotracheal intubation administered. Daniel catheter was placed in a sterile technique. Record Of Operation [facility] [address] [facility] [place]. [address] NAME: SOM JUSTIN JR : 49 STATUS : ADM IN PAT#: [id number] AGE: 71 ADM/REG DATE : 08/22/16 MR#: [id number] REPORT SERV DATE: 08/25/16 DICTATED BY: CACHORRO SALAZAR DATE: 08/24/16 REPORT STATUS : Draft TRANSCRIBED BY: YNES DATE: 08/24/16 The patient placed prone on a Rubén spine frame. Bony prominences were carefully padded. Thoracolumbar spine scrubbed with solution. DuraPrep was painted. Sterile drapes applied. Because of the complexity of surgery and the need to identify correct level of surgery intraoperatively as well as desire to carry out the safest and most precise dissection, I felt that intraoperative navigation was mandatory. A small stab wound was carried out of the right posterior superior iliac spine. A percutaneous pin with navigational frame attached was inserted in PSIS. Intraoperative CT scan with O-arm obtained, CT information used to register the navigational system. With navigational assistance, I identified the L4-5 level. Just lateral to the facet joint on the left side at L4-5, a 3 cm skin incision was carried out. A blunt navigated probe placed through the fascia, muscle and docked over the facet joint. Muscle dilators were inserted followed by placement of a tubular retractor attached to an arm mount on the table. The microscope was sterilely draped and used throughout the remainder of the procedure. With navigational assistance, again I identified the top pedicle of L5, the inferior pedicle of L4. Because the foraminal space was so tight, I knew I would have to do some osteotomy at the top of the pedicle and the posterior superior portion of the vertebral body (HHALL) osteotomy was carried out the same time. We did this with a cutting bur followed by giovani bur. The entire superior articular process of the L5 facet joint was removed. The inferior articular process of L4, the lamina, and the pars interarticularis of L4 were removed. Completely decompressed the thecal sac and nerve root as well as the foraminal zone and by far the worst stenosis was the foraminal zone with facet and ligamentum hypertrophy causing severe L5 and L4 nerve root impingement. Wounds were irrigated. With the osteotomy, I was able to then enter the inferior aspect of the disk space and worked from inferior to superior removing the entire disk and able to remove approximately 70% of the entire disk through this posterior lateral approach. I was then able to carry out an intradiscal trial and ultimately, I placed a much larger cage, which gave indirect decompression on the contralateral side through distraction of the interbody space. I placed an 11 x 32 mm cage in this space, which was almost completely collapsed preoperatively. Afterwards, a posterior lateral interbody fusion was carried out with local bone graft and allograft combination. After the interbody fusion was completed, the retractor was removed. No bleeding was noted. I then carried out a 3-cm skin incision on the right side to match that on the left. I then used a percutaneous Voyager pedicle tap and screw inserter operator. I tapped the pedicles of L4 and 5 bilaterally. Polyaxial Voyager screws were placed at both levels. Rods were then placed to the top portion of the screw reduced into the tulip of the pedicle screw. The set screws inserted and tightened with a torque wrench providing rigid stability. The intraoperative CT scan with O-arm repeated showing excellent position of all implants. The fascial openings were closed with a single interrupted #1 Vicryl suture. The subcutaneous tissue closed with 2-0 Vicryl sutures, 2-0 vertical mattress nylon suture used for skin closure. Sterile dressings applied. The patient was awakened and extubated and taken to the recovery room in satisfactory condition having tolerated procedure well. Record Of Operation [facility] [address] [facility] [place]. [address] NAME: SOM JUSTIN : 49 STATUS : ADM IN [facility]#: [id number] AGE: 71 ADM/REG DATE : 08/22/16 MR#: [id number] REPORT SERV DATE: 08/25/16 DICTATED BY: CACHORRO SALAZAR DATE: 08/24/16 REPORT STATUS : Draft TRANSCRIBED BY: MODL DATE: 08/24/16 /YNES Cachorro Salazar D.O. / [id number] CC: DO MARTITA Gutierrez MARGARET
--- NOTE | ~2016-08-22 | CN ---
Consultation Report [facility] [address] [place]. [address] NAME: SOM JUSTIN JR : 49 STATUS : ADM IN PAT#: [id number] AGE: 71 ADM/REG DATE : 08/22/16 MR#: [id number] REPORT SERV DATE: 08/26/16 DICTATED BY: NHUNG HARVEY DATE: 08/26/16 REPORT STATUS : Draft TRANSCRIBED BY: MODL DATE: 08/26/16 INFECTIOUS DISEASE CONSULT DATE OF CONSULTATION: REASON FOR REFERRAL: Evaluation and treatment of enterococcal bacteremia. HISTORY OF PRESENT ILLNESS: The patient is a 71-year-old male. He has a history of hypertension, diabetes mellitus, hypothyroidism, benign prostatic hypertrophy, coronary artery disease. He came in on 08/22/2016 at [facility] with lower extremity weakness. Of note, he also complained of two months of generalized weakness, easy fatigability, anorexia, about a 30-pound weight loss, and some intermittent diarrhea and constipation. He was evaluated and then transferred here, so he could be seen by Orthopedic[facility]Spine. He was found to have spinal stenosis and underwent surgery by Dr. Dalal yesterday. A left lumbar 4-5 hemilaminectomy, foraminotomy, and facetectomy, a transforaminal diskectomy, and then stabilization with hardware. The night before, he had spiked a fever. Cultures have been done and then yesterday, after the surgery, it was found that his blood cultures were positive for enterococcus identified by [employer], the full identification sensitivity of that is still pending. He was started on vancomycin. He has actually begun to get hives now on his arms, legs, and trunk since starting that, although it is so close to the beginning of it and may well be another medication that is causing it. He states he did have fever and chill-like sensations and night sweats off and on through the last couple of months at home. He has not had any blood in his stool. He has had a colonoscopy in the past, but it has been long enough, he does not remember exactly what year it was done. His urinalysis was unremarkable. PAST MEDICAL HISTORY: Otherwise unremarkable. MEDICATIONS: As mentioned above. ALLERGIES: NO PREVIOUSLY KNOWN ANTIMICROBIAL ALLERGIES. 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 He is . Smoked many years, but stopped many years ago. No history of alcohol or substance abuse. FAMILY HISTORY: Noncontributory. PHYSICAL EXAMINATION: GENERAL: A nontoxic, elderly male, in no acute distress. Alert and oriented x3. VITAL SIGNS: Temperature at present is 98.3 with a pulse of 80, respirations 16, blood pressure 122/78. Weight is 111 kg. HEENT: Sclerae are clear. No oral lesions. NECK: Supple. LUNGS: Few crackles in the bases. Otherwise, clear. Consultation Report [place] [id number] [facility] [place] [place] [address] NAME: SOM JUSTIN JR : 49 STATUS : ADM IN PAT#: [id number] AGE: 71 ADM/REG DATE : 08/22/16 MR#: [id number] REPORT SERV DATE: 08/26/16 DICTATED BY: NHUNG HARVEY DATE: 08/26/16 REPORT STATUS : Draft TRANSCRIBED BY: YNES DATE: 08/26/16 HEART: Regular rate and rhythm. No murmurs appreciated. ABDOMEN: Soft, nontender. Positive bowel sounds. EXTREMITIES: Without clubbing or cyanosis. No swollen, red, or hot joints. No evidence of peripheral emboli. No rashes. IV site and left upper extremity shows no signs of inflammation. LABORATORY DATA: White count 8.7 when he came in, 6.4 today with a hematocrit of 33.7, platelets 163, unremarkable differential on the white count. BUN and creatinine 6 and 0.52. His procalcitonin was actually less than 0.05 shortly after admission. IMPRESSION: Enterococcal sepsis. The source at this time is not clearly evident. It does not appear to be his urine based on the urinalysis. It would lead to consideration of two other potential sources of endocarditis, particularly with his history of symptoms over the last two months and then also a colon lesion such as colon cancer. A CT scan was done of his abdomen and pelvis without contrast that showed no obvious lesions or causes. RECOMMENDATIONS: 1. We will change antibiotics to penicillin and gentamicin using synergistic doses of the latter. 2. He will need a transesophageal echocardiogram at some point. Finally, I will follow the patient with you. I appreciate very much your consulting on this patient. MISTY Nhung Harvey M.D. / [id number] CC: DO MARTITA Gutierrez MARGARET
--- NOTE | ~2016-08-22 | CN ---
Consultation Report [facility] [address] [place]. [address] NAME: SOM JUSTIN JR : 49 STATUS : ADM IN PAT#: [id number] AGE: 71 ADM/REG DATE : 08/22/16 MR#: [id number] REPORT SERV DATE: 08/23/16 DICTATED BY: CACHORRO SALAZAR DATE: 08/23/16 REPORT STATUS : Draft TRANSCRIBED BY: MODL DATE: 08/23/16 CONSULT NOTE. DATE OF CONSULTATION: CHIEF COMPLAINT: Weakness of lower extremities. 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 The patient has classic neurogenic claudication symptoms and has had extensive workup in the past. The patient has been quite weak for several weeks, in fact has been using a walker due to the severe pain and neurogenic claudication. The hold of it has been the fact that he has a known 95% LAD lesion. He was not having any cardiac symptoms and the assistant pressman has opined that this should be treated medically. I have spoken with his assistant pressman on multiple occasions and the question of whether he should have a stent or any kind of a bypass surgery prior to consideration. A spine surgery has been taken off the table by the assistant pressman in lieu of the fact that he is doing well with medicine. He is on Plavix and any kind of surgical procedure would have to be done with the patient remaining on Plavix, but the assistant pressman has indicated they do not believe he has the appropriate indications for a stent or a bypass. The patient yesterday was trying to transfer using his walker and his legs just buckled and gave out. He fell twice, the second time the EMS had to be called. He was taken the [facility], seen in the ER and ultimately transferred here at [facility] last night. This morning, he says he can certainly feel his legs. He has been able to detect when he needs to pass flatus, he has a normal sensation when he needs to urinate, and he is moving his lower extremities. With him lying flat in bed he is not having significant pain which would be a 3 to 4 on a scale of 10. As soon as he stands up and tries to walk his pain gets much worse 10/10 and his weakness gets markedly worse. The patient has not lost any bowel and bladder control. The past medical history, surgical history, current medications, allergies, social history, family history, is in the H and P by Dr. Johnston, see that for details. PHYSICAL EXAMINATION: GENERAL: Today, he was alert, cooperative, and well oriented. He follows directions appropriately. UPPER EXTREMITIES: He had good strength. Reflexes are diminished, but they are symmetrical. There is no evidence of myelopathy in the upper extremities. As a side note, he has had previous MRI of the brain recently which showed just some midbrain atrophy, but no significant focal lesions. The patient has also had a recent CT of the thoracic spine which was normal. Consultation Report [place] [id number] [facility] [place]. [address] NAME: SOM JUSTIN JR : 49 STATUS : ADM IN [facility]#: [id number] AGE: 71 ADM/REG DATE : 08/22/16 MR#: [id number] REPORT SERV DATE: 08/23/16 DICTATED BY: CACHORRO SALAZAR DATE: 08/23/16 REPORT STATUS : Draft TRANSCRIBED BY: YNES DATE: 08/23/16 On exam of the lower extremities. The patient's iliopsoas strength is at least 3+ to 4-/5 and I believe it is actually probably greater than, just because he has pain when trying to do a straight leg raise actively and also his other proximal muscles when testing the adductor it is 5/5. Definitely his quadriceps, his hamstrings, his tibialis anterior, and gastroc soleus, all appeared to be essentially 5/5. The reflexes are absent. There is no stocking glove decreased sensation. He has quite normal sensation to light touch. I did not do a vibratory sensation check. His toes are downgoing. There is no ankle clonus or evidence of myelopathy. ASSESSMENT: 1. The patient has known severe spinal stenosis of the lumbar spine. 2. Known coronary artery disease with a 95% left anterior descending lesion, currently asymptomatic. RECOMMENDATIONS: At this time, since he is on Plavix and has had two falls I will do an urgent MRI to make sure there is no hematoma or other evidence of bleeding. I will ask for the assistant pressman and the anesthesiologist to consult today in anticipation of surgery tomorrow. I think the patient will need to remain on Plavix during surgery, should remain normotensive during surgery, and despite all the above will have significant risk for bleeding, but in face of his marked weakness probably does not have any other options at this time. Further recommendations after I review the final MRI as to the actual levels of surgery and whether or not there has to be any kind of stabilization. SARI/YNES Cachorro Salazar D.O. / [id number] CC: MD Sherry James NP
--- NOTE | ~2016-08-22 | DS ---
Discharge Summary [facility] [address] [place]. [address] NAME: SOM JUSTIN JR : 49 STATUS : DIS IN PAT#: [id number] AGE: 71 ADM/REG DATE : 08/22/16 MR#: [id number] REPORT SERV DATE: 09/01/16 DICTATED BY: JOSE FERGUSON DATE: 08/31/16 REPORT STATUS : Draft TRANSCRIBED BY: MODMuriel DATE: 08/31/16 ADMISSION DATE: 08/22/2016 DISCHARGE DATE: 08/31/2016 SERVICE: Hospitalist Service. REASON FOR ADMISSION: This is a 71-year-old male who came in to [facility] with lower extremity weakness and back pain. He had a history of known lumbar spine stenosis, had surgery scheduled for 09/12/2016, but had progression of weakness of lower extremities being unable to walk, and therefore, came in for workup for possible urgent spinal cord compression and needs surgery. DISCHARGE DIAGNOSES: 1. Mitral valve enterococcal endocarditis. 2. Lumbar spinal stenosis, status post surgical fixation. 3. Diabetes. 4. Hypertension. 5. Encephalopathy, resolved. HOSPITAL COURSE: Please see admission H and P from Dr. Patrick Whaley on 08/23/2016 from [facility] and interim discharge summary from Dr. Rocky Berg on 08/29/2016 for full details on admission and hospital stay. I took over the patient on 08/30/2016. 1. Lumbar spine stenosis. As previously mentioned, the patient had progression of lower extremity weakness causing him to come into the hospital for workup for spinal cord stenosis and compression. Dr. Dalal would be consulted and did an MRI of his lumbar spine which would show no evidence of hematoma, right neural foramina encroachment present at the L2-L3, L3-L4 levels, and left neural foramina encroachment present at the L3-L4, L3-L5 levels, and general intradiscal changes, moderate, at L2-L3 and L3-L4. Given the patient's symptoms, he felt the patient needed surgical intervention, and he would perform a left L4-L5 hemilaminectomy, foraminotomy, and facetectomy, as well as transforaminal diskectomy and interbody cage insertion and posterior lateral interbody fusion with local bone graft, L4-L5. The patient tolerated the procedure well. Has had continued weakness and difficulty with ambulation postoperatively, had improvement, but is in need of inpatient rehab leaving the hospital, which has been arranged for [facility]. 2. Enterococcal bacterial mitral valve endocarditis. The patient had had a two-month history of generalized weakness, easy fatigability, anorexia, and about 30-pound weight loss along with some intermittent diarrhea and constipation leading up to his ortho- spine surgery. The night before surgery on 08/24/2016, the patient would spike a fever at 102.1 and blood cultures will be drawn; they would come back positive /; 2/2 from the cultures drawn on 08/24/2016, positive for Enterococcus faecalis; and then 2/2 positive from cultures on 08/26/2016 for Enterococcus faecalis. With no obvious infectious sources, a CT of the abdomen and pelvis was performed, which would show no acute abnormality within abdomen or pelvis, and then also an echocardiogram/TEODORO was performed which would show the mitral valve had fully mobile leaflets, but an unusual thickening of the anterior mitral leaflet with borderline mild prolapse suggestive of a Discharge Summary [address] [address] NAME: SOM JUSTIN : 49 STATUS : DIS IN PAT#: [id number] AGE: 71 ADM/REG DATE : 08/22/16 MR#: [id number] REPORT SERV DATE: 09/01/16 DICTATED BY: JOSE FERGUSON DATE: 08/31/16 REPORT STATUS : Draft TRANSCRIBED BY: YNES DATE: 08/31/16 possible small mitral vegetation and 3D images confirmed abnormal thickening of the tip of the A2 segment of the anterior mitral leaflet suggestive of possible valvular vegetation. The patient, under the guidance of Infectious Disease, Dr. Woods, has been placed on IV penicillin G as well as IV gentamicin and will need to remain on those through 10/05/2016. A PICC line has been placed, and the patient will continue his IV antibiotic therapy at [facility]. The patient feels much better, appetite improving, performed the best he had done thus far with physical therapy yesterday, was able to stand and walk a little bit. DISCHARGE CONDITION: Stable. DISCHARGE MEDICATIONS: 1. Baclofen 20 mg p.o. q.8 hours. 2. Aspirin 81 mg p.o. daily. 3. Lipitor 20 mg p.o. at bedtime. 4. Wellbutrin 450 mg p.o. daily. 5. Flomax 0.4 mg p.o. daily. 6. Coreg 3.125 mg p.o. b.i.d. 7. Plavix 75 mg p.o. daily. 8. Vitamin B12, 1000 mcg p.o. daily. 9. Avodart 0.5 mg p.o. daily. 10.Nexium 40 mg p.o. b.i.d. 11.Ultram 100 mg p.o. q.8 hours p.r.n. 12.Neurontin 100 mg p.o. q.12 hours. 13.Lunesta 3 mg p.o. at bedtime p.r.n. 14.Levothyroxine 50 mcg p.o. daily. 15.Prinivil 10 mg p.o. daily. 16.Metformin 500 mg p.o. b.i.d. 17.Penicillin G IV through 10/05/2016. 18.IV gentamicin through 10/05/2016. DISCHARGE PLAN: The patient was discharged to [facility] for rehab as well as continuation of IV antibiotics. We will follow up with Dr. Asad Kaiser at [facility], and he is actually his primary care. ADDENDUM: The patient at preop workup at [facility] had a nuclear stress test performed in which he did have chest pain symptoms, but no EKG signs of ischemia. He then had a cardiac cath performed, which showed extremely calcific left anterior descending coronary artery with high-grade stenosis involving the mid and distal left anterior descending, but due to the calcific nature of the vessel, PCI was not performed at that time, instead opted for medical treatment since the patient was not having any life- threatening symptoms from the blockage. He will need followup with Dr. Ortiz in three to four weeks. He will need to follow up with Dr. Dalal after rehab and his primary care where he will follow up with Dr. Kaiser as well. Discharge Summary [facility] [address] [place]. [address] NAME: SOM JUSTIN : 49 STATUS : DIS IN PAT#: [id number] AGE: 71 ADM/REG DATE : 08/22/16 MR#: [id number] REPORT SERV DATE: 09/01/16 DICTATED BY: JOSE FERGUSON DATE: 08/31/16 REPORT STATUS : Draft TRANSCRIBED BY: MODL DATE: 08/31/16 TDR/BURAKL Jose Ferguson APN / [id number] CC: Lakisha Chandler DO Scott Hodges, D.O. Mark Anderson, M.D. John Carter Hemphill, MD
--- NOTE | ~2016-08-22 | IDS ---
Interim Discharge Summary [facility] [address] [place]. [address] NAME: SOM JUSTIN JR : 49 STATUS : ADM IN [facility]#: [id number] AGE: 71 ADM/REG DATE : 08/22/16 MR#: [id number] REPORT SERV DATE: 08/29/16 DICTATED BY: SINDY WATSON DATE: 08/29/16 REPORT STATUS : Draft TRANSCRIBED BY: MODL DATE: 08/29/16 ADMISSION DATE: 08/22/2016 DISCHARGE DATE: INTERIM DISCHARGE SUMMARY/PROGRESS NOTE SUBJECTIVE: The patient feels fine, awaiting his TEODORO, may have some mild confusion overnight. OBJECTIVE: VITAL SIGNS: 136/85, 95% on room air, 18 respirations, 90 pulse, 98.5 temp. GENERAL: No acute distress. HEENT: PERRLA. No scleral icterus. CARDIOVASCULAR: He has a regular rate and rhythm. No murmur. ABDOMEN: Soft, nontender, nondistended. Positive bowel sounds. EXTREMITIES: No edema. No ecchymosis. NEURO: He is A and O x4/4. GCS of 15. SKIN: He has diffuse maculopapular rash on his bilateral upper extremities, on his trunk as well. The patient states, he has had a rash similar to this in the past years ago, but not as florid. LABORATORY DATA: 132 sodium, 3.9 potassium, 97 chloride, 25 bicarb, 6 BUN, 0.48 creatinine, 102 sugar, Mag 1.8, phos 3.1. INR 1.3. White count 7.2 from 7.5, hemoglobin 11.9 from 11.2. He has a platelets of 202,188. Sugar of 106. UA, straight cath, large rbc's, possible traumatic cath. Blood cultures finally no growth to date on 08/28/2016, prior had 4/4 bacteremia, first on 08/24/2016 two sets and then another two sets on 08/26/2016, from which it was shown to have enterococcus, pansensitive. He has a CT of the brain for altered mental status, was transient with hyperammonemia as the etiology. No acute pathology. CT abdomen and pelvis shows mild diffuse distention of the colon with gas, fluid, fecal material. No evidence of bowel obstruction, bilateral renal cysts, mild bibasilar atelectasis, spondylosis, facet arthropathy. He also had a MRI of the spine, lumbar, and had a left neuroforaminal encroachment at L3-L4, L4-L5, degenerative intradiscal changes, moderate L2-L4, mild moderate L4-L5, and then right neural foraminal encroachment at L2-L4. The patient as a result with Dr. Dalal on 08/24/2016 had a left L4- L5 hemilaminectomy, foraminotomy, facetectomy with instrumentation. HOSPITAL COURSE, INTERIM DISCHARGE SUMMARY: This is a 71-year-old obese male with known history of diabetes, hypertension, hypothyroidism, benign prostatic hyperplasia, coronary artery disease as well as having recent stress test on 07/2016 that showed no ischemia at 95%, LAD stenosis, but then actually the stress test from what I saw has moderate risk as a result with LVEF 63%. As a result, Cardiology was preoperatively consulted for clearance, for which the patient did not have any active angina as a result, did not require any PCI at that time. The patient with normal echo, resumed aspirin after surgery and cleared patient for surgery. The patient had a significant fever postop day, as a result I pancultured unusual enterococcus 2/2 bacteremia resulted unlikely postsurgical in etiology more than likely given indolent chronic night sweats. We would want to rule out Interim Discharge Summary [address] [address] NAME: SOM JUSTIN : 49 STATUS : ADM IN 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 A transthoracic echo did not show any vegetations. He will have a TEODORO today. If that is negative, consider possible colonoscopy to rule out any type of mass, associated enterococci seeding to the blood, cannot find any overt source. Infectious Disease agrees with the plan. I switched him from vanc to penicillin G and gentamicin because he developed maculopapular rash, first started on the right upper extremity, now spread to the trunk and left upper extremity that may be been drug related; however, still persistent with rash despite vancomycin discontinuation days ago. We will discontinue Protonix at this time despite being n.p.o. to reduce stress ulcer prophylaxis and clear sepsis with possibly use of corticosteroids that would actually allow for stress ulcer prophylaxis in a patient with these two minor criteria being met. The patient is likely to stay till possibly , Monday, once we have a proper source of infection. Last blood culture was in 08/28/2016. Consider fourteen days of antibiotics thereafter. See rest of my orders. All questions were answered. It took well over thirty minutes to do. MECCAT/MODL Sindy Watson DO / [id number] CC: DO Sherry Gutierrez
--- NOTE | ~2016-08-22 | CN ---
Consultation Report [facility] [address] [place]. [address] NAME: SOM JUSTIN JR : 49 STATUS : ADM IN PAT#: [id number] AGE: 71 ADM/REG DATE : 08/22/16 MR#: [id number] REPORT SERV DATE: 08/23/16 DICTATED BY: BOLIVAR ORTIZ DATE: 08/23/16 REPORT STATUS : Draft TRANSCRIBED BY: YNES DATE: 08/23/16 CARDIOLOGY CONSULTATION DATE OF CONSULTATION: 08/23/2016 REASON FOR CONSULTATION: Preoperative evaluation in a patient with known high-grade disease of the mid and distal left anterior descending coronary artery. HISTORY OF PRESENT ILLNESS: Mr. Justin is a very pleasant 71-year-old man with a history of coronary heart disease who is admitted with progressive lower extremity pain and weakness. The patient has been having back pain for about four weeks. He has been referred to Dr. Dalal. The patient has been found to have spinal stenosis, and had been scheduled for elective surgery on 09/12/2016. However, the patient has had abrupt progression of the weakness of his lower extremities to the point where he is essentially unable to walk at this time. The patient has therefore been admitted for more urgent evaluation for spinal cord compression. The patient first came to my attention in 09/2016. The patient was admitted to [facility] following a near-syncopal event. The patient's syncopal event had been preceded by several days of an upper respiratory tract type infection associated with fevers, chills, and decreased p.o. intake. The patient was rehydrated, and his symptoms resolved shortly after admission. He underwent cardiac workup with a Bill exercise tolerance test with myocardial perfusion imaging. The patient had no ECG evidence of ischemia, and in fact, his myocardial perfusion imaging study was normal with no evidence of ischemia in the LAD distribution. However, the patient did have typical exercise limiting angina with 5/10 chest pain during his exercise stress test. The patient was, however, able to achieve 7 METS during his stress test. Due to the patient's typical symptoms, he was eventually referred for coronary angiography. The patient's cardiac catheterization demonstrated an extremely calcific left anterior descending coronary artery with high-grade stenosis involving the mid and distal left anterior descending. Due to the extremely calcific nature of the vessel, percutaneous coronary intervention was not immediately performed. Dr. De Los Santos, who had performed the diagnostic procedure discussed the case with me, to determine whether the patient would be a candidate for rotational atherectomy and high-risk PCI to the LAD. Due to the complex nature of the lesion, and the fact that the disease portion of the LAD across two diagonal branches, it was felt that a trial of medical therapy was warranted, particularly since the patient had no life-limiting symptoms prior to his admission. After discussing risks and benefits of rotational atherectomy and PCI with the patient and his family, it was felt that the patient should have a trial of medical therapy before proceeding to PCI. The patient was started on carvedilol. He had followup with Dr. Schmidt. The patient has had no cardiovascular symptoms since hospital discharge last September. Consultation Report [place] [id number] [facility] [place]. [address] NAME: SOM JUSTIN JR : 49 STATUS : ADM IN [facility]#: [id number] AGE: 71 ADM/REG DATE : 08/22/16 MR#: [id number] REPORT SERV DATE: 08/23/16 DICTATED BY: BOLIVAR ORTIZ DATE: 08/23/16 REPORT STATUS : Draft TRANSCRIBED BY: YNES DATE: 08/23/16 PAST MEDICAL HISTORY: 1. Coronary artery disease. 2. Hypertension. 3. Hypothyroidism. 4. Type 2 diabetes. 5. Benign prostatic hypertrophy. 6. Gastritis. PAST SURGICAL HISTORY: 1. Left shoulder surgery. 2. Hernia repair. 3. Left knee arthroscopic surgery. 4. Lithotripsy. FAMILY HISTORY: There is a positive family history of heart disease, though no early heart disease or sudden cardiac . Family history is also notable for colon and breast cancer. SOCIAL HISTORY: The patient has no history of tobacco use. He drinks alcohol rarely. He lives at home with his . ALLERGIES: THE PATIENT HAS ADVERSE REACTIONS TO NSAIDS AND ASPIRIN, BOTH OF WHICH CAUSE EXACERBATION OF HIS GASTRITIS. THE PATIENT IS ABLE TO TOLERATE LOW-DOSE ASPIRIN, HOWEVER. HOME MEDICATIONS: 1. Tylenol 650 mg p.o. q.6 h. p.r.n. headache. 2. Aspirin 81 mg p.o. at bedtime. 3. Lipitor 20 mg p.o. at bedtime. 4. Baclofen 20 mg p.o. q.8 h. 5. Wellbutrin XL 450 mg p.o. daily. 6. Carvedilol 3.125 mg p.o. twice daily. 7. Plavix 75 mg p.o. daily. 8. Vitamin B12 1000 mcg p.o. daily with noon meal. 9. Avodart 0.5 mg p.o. daily. 10.Nexium 40 mg p.o. twice daily. 11.Lunesta 3 mg p.o. at bedtime. 12.Gabapentin 100 mg p.o. q.12 h. 13.Hydrocodone/acetaminophen 10/325 mg one to two tablets every four hours as needed. 14.Levothyroxine 50 mcg p.o. daily. 15.Lisinopril 10 mg p.o. daily. 16.Melatonin 10 mg p.o. at bedtime. 17.Metformin 500 mg p.o. twice daily. 18.Tamsulosin 0.4 mg p.o. daily. REVIEW OF SYSTEMS: Consultation Report [address] [place]. [address] NAME: SOM JUSTIN VIVIAN ANDERSON : 49 STATUS : ADM IN [facility]#: [id number] AGE: 71 ADM/REG DATE : 08/22/16 MR#: [id number] REPORT SERV DATE: 08/23/16 DICTATED BY: BOLIVAR ORTIZ DATE: 08/23/16 REPORT STATUS : Draft TRANSCRIBED BY: YNES DATE: 08/23/16 A complete 12-system review was performed. This is noncontributory except for the pertinent positives and negatives noted in the history of present illness above. PHYSICAL EXAMINATION: VITAL SIGNS: Temperature is 98.5 degrees Fahrenheit, blood pressure is 118/71 mmHg. Heart rate is 67 beats per minute and regular, respirations 14, oxygen saturation is 95% on room air. CONSTITUTIONAL: The patient is an overweight, older white man, in no acute distress. EYES: PERRL, EOMI, clear conjunctiva. HEAD/MNT: NCAT with moist mucous membranes and grossly normal hard and soft palate. NECK: Supple with no obvious thyromegaly or lymphadenopathy. CARDIOVASCULAR: There is a regular rhythm with a normal S1 and a physiologically split second heart sound. No significant murmurs, rubs, or gallops are noted. The jugular venous pressure is grossly normal. PULMONARY: Exam is limited, as the patient is unable to sit up due to his back pain. However, the lungs are grossly clear to auscultation bilaterally with no wheezing, rales, rhonchi noted in the anterolateral lung yanes. ABDOMINAL: Soft, non-tender, non-distended with no hepatosplenomegaly noted. EXTREMITIES: The patient has significantly decreased muscle strength in the lower extremities bilaterally. Sensation is intact, however. MUSCULOSKELETAL: Grossly normal strength and range of motion in all extremities. INTEGUMENTARY: Skin appears intact with no bruises, wounds or active lesions noted. NEURO/PSYCH: Alert and oriented x3, with no dysarthria, facial droop or lateralizing weakness noted. 12-LEAD EKG: The patient's 12-lead EKG dated 08/23/2016, at 1133 hours shows normal sinus rhythm with a right bundle-branch block and left anterior fascicular block. No significant ST/T-wave changes were noted. LABORATORY DATA: Electrolytes show a sodium of 128, potassium 3.0, chloride is 94, BUN 10, creatinine is 0.6, magnesium 1.9. Glucose is 85. Calcium 8.7. Cell count shows a white blood cell count of 7.1, hemoglobin 11.2, hematocrit 33 and platelets 184. The patient has had two troponins, the first of which is 0.05 and the second of which is 0.04. TELEMETRY: This shows normal sinus rhythm. Hemoglobin A1c is 6.1. A repeat potassium is 3.4. ASSESSMENT AND PLAN: 1. Coronary artery disease involving the mid left anterior descending coronary artery. 2. Preoperative elective coronary revascularization for noncardiac surgery has been Consultation Report [address] [place]. [address] NAME: SOM JUSTIN VIVIAN ANDERSON : 49 STATUS : ADM IN PAT#: [id number] AGE: 71 ADM/REG DATE : 08/22/16 MR#: [id number] REPORT SERV DATE: 08/23/16 DICTATED BY: BOLIVAR ORTIZ DATE: 08/23/16 REPORT STATUS : Draft TRANSCRIBED BY: MODL DATE: 08/23/16 examined in a large randomized controlled trial. There has been no proven benefit for coronary revascularization prior to surgery in this population. Given the high-risk nature of the proposed percutaneous coronary intervention, I cannot recommend this in the absence of clear cardiovascular symptoms. The patient had no demonstrable ischemia on his perfusion study in the left anterior descending distribution. He further had no significant EKG changes, but only symptoms of angina. The patient had a relatively good functional capacity at the time of his stress test which was performed on 07/13/2016. I estimate that there may be a risk as high as 2%-5% of major complications from rotational atherectomy with extensive stenting of the patient's left anterior descending and diagonal branches. Again, in the absence of symptoms, I cannot recommend PCI due to the high-risk nature of the procedure. There are no overt contraindications to elective noncardiac surgery. Additionally, if percutaneous coronary intervention were to be performed, the patient would be obligated to take dual anti-platelet therapy for at least three to six months. At this time, the patient has no absolute indication to continue Plavix. The patient has had no recent myocardial infarction nor any recent percutaneous coronary intervention. We will discontinue Plavix. The patient may proceed to surgery without further cardiac workup. The patient is intermediate cardiac risk given his known coronary heart disease. The patient does have normal left ventricular systolic function with an ejection fraction of 60%. I have discussed the case with Dr. Schmidt, who agrees that percutaneous coronary intervention is not indicated at this time. If possible, I would recommend that the patient continue aspirin 81 mg daily throughout the perioperative period. Similarly, I would recommend the patient continue his home dose of carvedilol if tolerated throughout the perioperative period. The Cardiology Service will continue to follow the patient closely during this hospitalization. Please call should there be any questions regarding the patient's perioperative cardiac management, or should there be any questions regarding the appropriateness of percutaneous coronary intervention in this setting. JCH/MODL Bolivar Ortiz MD / [id number] CC: DO MARTITA Gutierrez MARGARET
[~2016-08-22 23:19] MED LIST changes: +ASAB PO; +B121000P IM; +BACLOFEN20 MG PO; +COREG3 PO; +CRESTOR10 PO; +CYANO1000T PO; +HALF81 PO; +LEVOTHYROXIN50 MCG PO; +LIPITOR20 PO; +LUNESTA3 MG PO; +MELATONIN10 M2 PO; +MELATONIN5 M1 PO; +NEUR100 PO; +NORCO1 TAB PO; +PLAVIX PO; +T PO; +WELLXL150 PO; +X25 PO
[2016-08-23 06:23] LABS: CREATININE, URINE 88.3 MG/DL
[2016-08-23 06:30] LABS: BASOPHILS 0.1 %; BASOPHILS ABSOLUTE 0.01 10/3/uL (0.0-0.16); EOSINOPHILS 0.4 %; EOSINOPHILS ABSOLUTE 0.03 10/3/uL (0.0-0.53); HEMOGLOBIN 11.2 g/dL (13.6-17.8); IMMATURE GRANULOCYTES 0.4 %; IMMATURE GRANULOCYTES ABSOLUTE 0.03 10/3/uL (0.0-0.11); LYMPHOCYTES 8.9 %; LYMPHOCYTES ABSOLUTE 0.63 10/3/uL (0.67-4.30); MANUAL DIFF NO %; MEAN CORPUS HGB CONC 33.9 g/dL (32.0-36.0); MEAN CORPUSCULAR HEMOGLOB 26.2 pg (26.0-34.0); MEAN CORPUSCULAR VOLUME 77.1 fL (80-100); MEAN PLATELET VOLUME 8.8 fL (9.2-13.0); MONOCYTES 8.9 %; MONOCYTES ABSOLUTE 0.63 10/3/uL (0.21-1.20); NEUTROPHILS 81.3 %; NEUTROPHILS ABSOLUTE 5.77 10/3/uL (2.02-8.40); PLATELET COUNT 184 10/3/uL (150-400); RBC DISTRIBUTION WIDTH 15.5 % (12.0-16.0); RED CELL COUNT 4.28 10/6/uL (4.7-6.1); WHITE BLOOD CELLS 7.1 10/3/uL (4.5-10.5)
[2016-08-23 06:36] LABS: INTERNATIONAL NORMAL RATI 1.4 UNITS (-)
[2016-08-23 06:43] LABS: PROTIME (NOT ORD) 16.6 SEC (12.0-14.5)
[2016-08-23 06:49] LABS: A/G RATIO 0.7 (0.7-1.9); ALBUMIN 2.5 G/DL (3.5-5.0); ALKALINE PHOSPHATASE 61 U/L (45-117); CALCIUM, SERUM 8.7 MG/DL (8.5-10.4); CHLORIDE, SERUM 94 MMOL/L (96-112); CO2 (CARBON DIOXIDE) 23 MMOL/L (24-34); GFR AFRICAN AMERICAN 119 ML/MIN (>=60); GFR NON AFRICAN AMERICAN 103 ML/MIN (>=60); GLOBULIN 3.7 G/DL (2.5-4.1); GLUCOSE, SERUM 85 MG/DL (60-99); SGOT(AST) 7 U/L (5-40); SGPT(ALT) 15 U/L (5-65); SODIUM, SERUM 128 MMOL/L (135-148); TOTAL BILIRUBIN 0.5 MG/DL (0-1.2); TOTAL PROTEIN 6.2 G/DL (6.0-8.5); TROPONIN I 0.04 NG/ML (<0.05)
[2016-08-23 06:50] LABS: BUN (BLOOD UREA NITROGEN) 10 MG/DL (6-23)
[2016-08-23 08:54] LABS: GLYCOHEMOGLOBIN (HbA1c) 6.1 % (4.7-6.1)
[2016-08-23 11:56] LABS: POTASSIUM, SERUM 3.4 MMOL/L (3.5-5.3); TROPONIN I 0.04 NG/ML (<0.05)
[2016-08-23 21:58] LABS: B NATRIURETIC PEPTIDE (BNP) 19.2 PG/ML (< 100.0)
[2016-08-24 06:34] LABS: BASOPHILS 0.2 %; BASOPHILS ABSOLUTE 0.01 10/3/uL (0.0-0.16); EOSINOPHILS 0.2 %; EOSINOPHILS ABSOLUTE 0.01 10/3/uL (0.0-0.53); HEMATOCRIT 32.8 % (40.0-51.0); IMMATURE GRANULOCYTES 0.3 %; IMMATURE GRANULOCYTES ABSOLUTE 0.02 10/3/uL (0.0-0.11); LYMPHOCYTES 12.3 %; LYMPHOCYTES ABSOLUTE 0.71 10/3/uL (0.67-4.30); MANUAL DIFF NO %; MEAN CORPUS HGB CONC 33.5 g/dL (32.0-36.0); MEAN CORPUSCULAR HEMOGLOB 26.1 pg (26.0-34.0); MEAN CORPUSCULAR VOLUME 77.9 fL (80-100); MEAN PLATELET VOLUME 8.7 fL (9.2-13.0); MONOCYTES 7.5 %; MONOCYTES ABSOLUTE 0.43 10/3/uL (0.21-1.20); NEUTROPHILS 79.5 %; NEUTROPHILS ABSOLUTE 4.57 10/3/uL (2.02-8.40); PLATELET COUNT 152 10/3/uL (150-400); RBC DISTRIBUTION WIDTH 15.5 % (12.0-16.0); RED CELL COUNT 4.21 10/6/uL (4.7-6.1); WHITE BLOOD CELLS 5.8 10/3/uL (4.5-10.5)
[2016-08-24 06:54] LABS: BUN (BLOOD UREA NITROGEN) 7 MG/DL (6-23); CALCIUM, SERUM 8.3 MG/DL (8.5-10.4); CHLORIDE, SERUM 96 MMOL/L (96-112); CO2 (CARBON DIOXIDE) 24 MMOL/L (24-34); CREATININE 0.52 MG/DL (0.70-1.30); GFR AFRICAN AMERICAN 126 ML/MIN (>=60); GFR NON AFRICAN AMERICAN 109 ML/MIN (>=60); GLUCOSE, SERUM 98 MG/DL (60-99); PHOSPHORUS, SERUM 1.8 MG/DL (2.5-4.5); POTASSIUM, SERUM 3.1 MMOL/L (3.5-5.3); SODIUM, SERUM 131 MMOL/L (135-148)
[2016-08-24 11:48] LABS: WHITE BLOOD CELLS 6.6 10/3/uL (4.5-10.5)
[2016-08-24 11:49] LABS: BASOPHILS 0 %; EOSINOPHILS 0.3 %; EOSINOPHILS ABSOLUTE 0.02 10/3/uL (0.0-0.53); HEMATOCRIT 32.3 % (40.0-51.0); HEMOGLOBIN 11.1 g/dL (13.6-17.8); IMMATURE GRANULOCYTES 0.8 %; IMMATURE GRANULOCYTES ABSOLUTE 0.05 10/3/uL (0.0-0.11); LYMPHOCYTES ABSOLUTE 0.79 10/3/uL (0.67-4.30); MANUAL DIFF NO %; MEAN CORPUS HGB CONC 34.4 g/dL (32.0-36.0); MEAN CORPUSCULAR HEMOGLOB 26.4 pg (26.0-34.0); MEAN CORPUSCULAR VOLUME 76.9 fL (80-100); MEAN PLATELET VOLUME 8.5 fL (9.2-13.0); MONOCYTES 8.1 %; MONOCYTES ABSOLUTE 0.53 10/3/uL (0.21-1.20); NEUTROPHILS 78.8 %; NEUTROPHILS ABSOLUTE 5.18 10/3/uL (2.02-8.40); PLATELET COUNT 164 10/3/uL (150-400); RBC DISTRIBUTION WIDTH 15.7 % (12.0-16.0)
[2016-08-24 12:01] LABS: BUN (BLOOD UREA NITROGEN) 6 MG/DL (6-23); CALCIUM, SERUM 8.4 MG/DL (8.5-10.4); CHLORIDE, SERUM 97 MMOL/L (96-112); CO2 (CARBON DIOXIDE) 24 MMOL/L (24-34); CREATININE 0.53 MG/DL (0.70-1.30); GFR AFRICAN AMERICAN 125 ML/MIN (>=60); GFR NON AFRICAN AMERICAN 108 ML/MIN (>=60); POTASSIUM, SERUM 3.2 MMOL/L (3.5-5.3); SODIUM, SERUM 133 MMOL/L (135-148)
[2016-08-24 12:02] LABS: GLUCOSE, SERUM 130 MG/DL (60-99)
[2016-08-24 18:39] LABS: PROCALCITONIN < 0.05 ng/mL (<0.5)
[2016-08-25 07:17] LABS: BASOPHILS 0 %; EOSINOPHILS 0.4 %; EOSINOPHILS ABSOLUTE 0.03 10/3/uL (0.0-0.53); HEMOGLOBIN 10.8 g/dL (13.6-17.8); IMMATURE GRANULOCYTES 0.4 %; IMMATURE GRANULOCYTES ABSOLUTE 0.03 10/3/uL (0.0-0.11); LYMPHOCYTES 9.6 %; LYMPHOCYTES ABSOLUTE 0.68 10/3/uL (0.67-4.30); MEAN CORPUS HGB CONC 33.8 g/dL (32.0-36.0); MEAN CORPUSCULAR HEMOGLOB 26.4 pg (26.0-34.0); MEAN CORPUSCULAR VOLUME 78.2 fL (80-100); MEAN PLATELET VOLUME 8.5 fL (9.2-13.0); MONOCYTES 11.6 %; MONOCYTES ABSOLUTE 0.82 10/3/uL (0.21-1.20); NEUTROPHILS ABSOLUTE 5.49 10/3/uL (2.02-8.40); PLATELET COUNT 137 10/3/uL (150-400); RBC DISTRIBUTION WIDTH 15.7 % (12.0-16.0); RED CELL COUNT 4.09 10/6/uL (4.7-6.1); WHITE BLOOD CELLS 7.1 10/3/uL (4.5-10.5)
[2016-08-25 07:18] LABS: MANUAL DIFF NO %
[2016-08-25 07:42] LABS: BUN (BLOOD UREA NITROGEN) 6 MG/DL (6-23); CALCIUM, SERUM 8.4 MG/DL (8.5-10.4); CHLORIDE, SERUM 98 MMOL/L (96-112); CO2 (CARBON DIOXIDE) 27 MMOL/L (24-34); CREATININE 0.47 MG/DL (0.70-1.30); GFR AFRICAN AMERICAN 131 ML/MIN (>=60); GFR NON AFRICAN AMERICAN 113 ML/MIN (>=60); POTASSIUM, SERUM 3.6 MMOL/L (3.5-5.3); SODIUM, SERUM 134 MMOL/L (135-148)
[2016-08-25 07:43] LABS: GLUCOSE, SERUM 94 MG/DL (60-99); PHOSPHORUS, SERUM 2.6 MG/DL (2.5-4.5)
[2016-08-26 05:16] LABS: BASOPHILS 0.2 %; BASOPHILS ABSOLUTE 0.01 10/3/uL (0.0-0.16); EOSINOPHILS 0.8 %; EOSINOPHILS ABSOLUTE 0.05 10/3/uL (0.0-0.53); HEMATOCRIT 33.7 % (40.0-51.0); HEMOGLOBIN 11.3 g/dL (13.6-17.8); IMMATURE GRANULOCYTES 0.5 %; IMMATURE GRANULOCYTES ABSOLUTE 0.03 10/3/uL (0.0-0.11); LYMPHOCYTES 11.9 %; LYMPHOCYTES ABSOLUTE 0.76 10/3/uL (0.67-4.30); MEAN CORPUS HGB CONC 33.5 g/dL (32.0-36.0); MEAN CORPUSCULAR HEMOGLOB 26.2 pg (26.0-34.0); MONOCYTES 9.4 %; NEUTROPHILS 77.2 %; NEUTROPHILS ABSOLUTE 4.92 10/3/uL (2.02-8.40); PLATELET COUNT 163 10/3/uL (150-400); RBC DISTRIBUTION WIDTH 15.5 % (12.0-16.0); RED CELL COUNT 4.32 10/6/uL (4.7-6.1); WHITE BLOOD CELLS 6.4 10/3/uL (4.5-10.5)
[2016-08-26 05:18] LABS: MANUAL DIFF NO %
[2016-08-26 05:29] LABS: BUN (BLOOD UREA NITROGEN) 6 MG/DL (6-23); CALCIUM, SERUM 8.4 MG/DL (8.5-10.4); CHLORIDE, SERUM 97 MMOL/L (96-112); CO2 (CARBON DIOXIDE) 30 MMOL/L (24-34); CREATININE 0.52 MG/DL (0.70-1.30); GFR AFRICAN AMERICAN 126 ML/MIN (>=60); GFR NON AFRICAN AMERICAN 109 ML/MIN (>=60); GLUCOSE, SERUM 90 MG/DL (60-99); POTASSIUM, SERUM 3.3 MMOL/L (3.5-5.3); SODIUM, SERUM 136 MMOL/L (135-148)
[2016-08-26 12:09] LABS: POTASSIUM, SERUM 3.8 MMOL/L (3.5-5.3)
[2016-08-26 15:48] LABS: FOLATE 10.2 NG/ML (>5.2)
[2016-08-27 06:55] LABS: BASOPHILS 0 %; EOSINOPHILS 1.3 %; EOSINOPHILS ABSOLUTE 0.08 10/3/uL (0.0-0.53); HEMATOCRIT 33.5 % (40.0-51.0); HEMOGLOBIN 11.1 g/dL (13.6-17.8); IMMATURE GRANULOCYTES 0.5 %; IMMATURE GRANULOCYTES ABSOLUTE 0.03 10/3/uL (0.0-0.11); LYMPHOCYTES 11.7 %; MEAN CORPUS HGB CONC 33.1 g/dL (32.0-36.0); MEAN CORPUSCULAR HEMOGLOB 26.1 pg (26.0-34.0); MEAN CORPUSCULAR VOLUME 78.8 fL (80-100); MEAN PLATELET VOLUME 9.1 fL (9.2-13.0); MONOCYTES 9.5 %; MONOCYTES ABSOLUTE 0.57 10/3/uL (0.21-1.20); NEUTROPHILS ABSOLUTE 4.62 10/3/uL (2.02-8.40); PLATELET COUNT 165 10/3/uL (150-400); RBC DISTRIBUTION WIDTH 15.8 % (12.0-16.0); RED CELL COUNT 4.25 10/6/uL (4.7-6.1)
[2016-08-27 06:58] LABS: BUN (BLOOD UREA NITROGEN) 8 MG/DL (6-23); CHLORIDE, SERUM 98 MMOL/L (96-112); CO2 (CARBON DIOXIDE) 29 MMOL/L (24-34); CREATININE 0.45 MG/DL (0.70-1.30); GFR AFRICAN AMERICAN 134 ML/MIN (>=60); GFR NON AFRICAN AMERICAN 115 ML/MIN (>=60); GLUCOSE, SERUM 107 MG/DL (60-99); PHOSPHORUS, SERUM 2.1 MG/DL (2.5-4.5); POTASSIUM, SERUM 3.4 MMOL/L (3.5-5.3); SODIUM, SERUM 135 MMOL/L (135-148)
[2016-08-27 07:05] LABS: MANUAL DIFF NO %
[2016-08-28 06:48] LABS: BUN (BLOOD UREA NITROGEN) 5 MG/DL (6-23); CALCIUM, SERUM 9.6 MG/DL (8.5-10.4); CHLORIDE, SERUM 97 MMOL/L (96-112); CO2 (CARBON DIOXIDE) 27 MMOL/L (24-34); CREATININE 0.48 MG/DL (0.70-1.30); GFR AFRICAN AMERICAN 130 ML/MIN (>=60); GFR NON AFRICAN AMERICAN 112 ML/MIN (>=60); GLUCOSE, SERUM 104 MG/DL (60-99); PHOSPHORUS, SERUM 2.7 MG/DL (2.5-4.5); SODIUM, SERUM 133 MMOL/L (135-148)
[2016-08-28 06:54] LABS: BASOPHILS 0.1 %; BASOPHILS ABSOLUTE 0.01 10/3/uL (0.0-0.16); EOSINOPHILS 1.9 %; EOSINOPHILS ABSOLUTE 0.14 10/3/uL (0.0-0.53); HEMATOCRIT 34.8 % (40.0-51.0); HEMOGLOBIN 11.7 g/dL (13.6-17.8); IMMATURE GRANULOCYTES 0.5 %; IMMATURE GRANULOCYTES ABSOLUTE 0.04 10/3/uL (0.0-0.11); LYMPHOCYTES 10.7 %; MEAN CORPUS HGB CONC 33.6 g/dL (32.0-36.0); MEAN CORPUSCULAR HEMOGLOB 26.1 pg (26.0-34.0); MEAN CORPUSCULAR VOLUME 77.5 fL (80-100); MONOCYTES 7.4 %; MONOCYTES ABSOLUTE 0.55 10/3/uL (0.21-1.20); NEUTROPHILS 79.4 %; NEUTROPHILS ABSOLUTE 5.91 10/3/uL (2.02-8.40); PLATELET COUNT 188 10/3/uL (150-400); RBC DISTRIBUTION WIDTH 15.9 % (12.0-16.0); RED CELL COUNT 4.49 10/6/uL (4.7-6.1); WHITE BLOOD CELLS 7.5 10/3/uL (4.5-10.5)
[2016-08-28 06:57] LABS: MANUAL DIFF NO %
[2016-08-28 14:43] LABS: ASCORBIC ACID (UR NOT ORDER) NEG (NEG); BILIRUBIN, URINE NEGATIVE (NEG); KETONE, URINE TRACE MG/DL (NEG); LEUKOCYTE ESTERASE(NOT OR NEG (NEG); WBC (NOT ORDERED) (RFLEX) 5 (0-5)
[2016-08-29 05:07] LABS: BASOPHILS 0.1 %; BASOPHILS ABSOLUTE 0.01 10/3/uL (0.0-0.16); EOSINOPHILS 2.5 %; EOSINOPHILS ABSOLUTE 0.18 10/3/uL (0.0-0.53); HEMATOCRIT 35.3 % (40.0-51.0); HEMOGLOBIN 11.9 g/dL (13.6-17.8); IMMATURE GRANULOCYTES 0.7 %; IMMATURE GRANULOCYTES ABSOLUTE 0.05 10/3/uL (0.0-0.11); LYMPHOCYTES 13.3 %; LYMPHOCYTES ABSOLUTE 0.95 10/3/uL (0.67-4.30); MEAN CORPUS HGB CONC 33.7 g/dL (32.0-36.0); MEAN CORPUSCULAR HEMOGLOB 26.6 pg (26.0-34.0); MEAN CORPUSCULAR VOLUME 78.8 fL (80-100); MEAN PLATELET VOLUME 9.1 fL (9.2-13.0); MONOCYTES 9.4 %; MONOCYTES ABSOLUTE 0.67 10/3/uL (0.21-1.20); PLATELET COUNT 202 10/3/uL (150-400); RBC DISTRIBUTION WIDTH 16.2 % (12.0-16.0); RED CELL COUNT 4.48 10/6/uL (4.7-6.1); WHITE BLOOD CELLS 7.2 10/3/uL (4.5-10.5)
[2016-08-29 05:23] LABS: MANUAL DIFF NO %
[2016-08-29 05:28] LABS: BUN (BLOOD UREA NITROGEN) 6 MG/DL (6-23); CALCIUM, SERUM 9.1 MG/DL (8.5-10.4); CHLORIDE, SERUM 97 MMOL/L (96-112); CO2 (CARBON DIOXIDE) 25 MMOL/L (24-34); CREATININE 0.48 MG/DL (0.70-1.30); GFR AFRICAN AMERICAN 130 ML/MIN (>=60); GFR NON AFRICAN AMERICAN 112 ML/MIN (>=60); GLUCOSE, SERUM 102 MG/DL (60-99); PHOSPHORUS, SERUM 3.1 MG/DL (2.5-4.5); POTASSIUM, SERUM 3.9 MMOL/L (3.5-5.3); SODIUM, SERUM 132 MMOL/L (135-148)
[2016-08-29 08:17] LABS: INTERNATIONAL NORMAL RATI 1.3 UNITS (-); PROTIME (NOT ORD) 16.3 SEC (12.0-14.5)
[2016-08-30 04:53] LABS: BASOPHILS 0.2 %; BASOPHILS ABSOLUTE 0.01 10/3/uL (0.0-0.16); EOSINOPHILS 2.3 %; EOSINOPHILS ABSOLUTE 0.14 10/3/uL (0.0-0.53); HEMATOCRIT 36.7 % (40.0-51.0); HEMOGLOBIN 12.3 g/dL (13.6-17.8); IMMATURE GRANULOCYTES ABSOLUTE 0.06 10/3/uL (0.0-0.11); LYMPHOCYTES 16.9 %; LYMPHOCYTES ABSOLUTE 1.04 10/3/uL (0.67-4.30); MEAN CORPUS HGB CONC 33.5 g/dL (32.0-36.0); MEAN CORPUSCULAR HEMOGLOB 26.5 pg (26.0-34.0); MEAN CORPUSCULAR VOLUME 79.1 fL (80-100); MEAN PLATELET VOLUME 9.1 fL (9.2-13.0); MONOCYTES 9.1 %; MONOCYTES ABSOLUTE 0.56 10/3/uL (0.21-1.20); NEUTROPHILS 70.5 %; NEUTROPHILS ABSOLUTE 4.34 10/3/uL (2.02-8.40); PLATELET COUNT 213 10/3/uL (150-400); RBC DISTRIBUTION WIDTH 16.1 % (12.0-16.0); RED CELL COUNT 4.64 10/6/uL (4.7-6.1); WHITE BLOOD CELLS 6.2 10/3/uL (4.5-10.5)
[2016-08-30 04:54] LABS: MANUAL DIFF NO %
[2016-08-30 05:04] LABS: BUN (BLOOD UREA NITROGEN) 9 MG/DL (6-23); CALCIUM, SERUM 9.3 MG/DL (8.5-10.4); CHLORIDE, SERUM 100 MMOL/L (96-112); CO2 (CARBON DIOXIDE) 25 MMOL/L (24-34); CREATININE 0.56 MG/DL (0.70-1.30); GFR AFRICAN AMERICAN 122 ML/MIN (>=60); GFR NON AFRICAN AMERICAN 106 ML/MIN (>=60); GLUCOSE, SERUM 103 MG/DL (60-99); PHOSPHORUS, SERUM 3.5 MG/DL (2.5-4.5); POTASSIUM, SERUM 3.9 MMOL/L (3.5-5.3); SODIUM, SERUM 136 MMOL/L (135-148)
[2016-08-31 05:45] LABS: BASOPHILS 0.4 %; BASOPHILS ABSOLUTE 0.02 10/3/uL (0.0-0.16); EOSINOPHILS 1.9 %; HEMATOCRIT 36.2 % (40.0-51.0); IMMATURE GRANULOCYTES 1.3 %; IMMATURE GRANULOCYTES ABSOLUTE 0.07 10/3/uL (0.0-0.11); LYMPHOCYTES 21.1 %; LYMPHOCYTES ABSOLUTE 1.12 10/3/uL (0.67-4.30); MANUAL DIFF NO %; MEAN CORPUS HGB CONC 33.1 g/dL (32.0-36.0); MEAN CORPUSCULAR HEMOGLOB 26.5 pg (26.0-34.0); MEAN CORPUSCULAR VOLUME 80.1 fL (80-100); MEAN PLATELET VOLUME 9.1 fL (9.2-13.0); MONOCYTES 9.1 %; MONOCYTES ABSOLUTE 0.48 10/3/uL (0.21-1.20); NEUTROPHILS 66.2 %; NEUTROPHILS ABSOLUTE 3.51 10/3/uL (2.02-8.40); PLATELET COUNT 213 10/3/uL (150-400); RBC DISTRIBUTION WIDTH 16.2 % (12.0-16.0); RED CELL COUNT 4.52 10/6/uL (4.7-6.1); WHITE BLOOD CELLS 5.3 10/3/uL (4.5-10.5)
[2016-08-31 06:06] LABS: BUN (BLOOD UREA NITROGEN) 10 MG/DL (6-23); CALCIUM, SERUM 9.9 MG/DL (8.5-10.4); CHLORIDE, SERUM 99 MMOL/L (96-112); CO2 (CARBON DIOXIDE) 26 MMOL/L (24-34); CREATININE 0.55 MG/DL (0.70-1.30); GFR AFRICAN AMERICAN 123 ML/MIN (>=60); GFR NON AFRICAN AMERICAN 106 ML/MIN (>=60); GLUCOSE, SERUM 98 MG/DL (60-99); POTASSIUM, SERUM 3.9 MMOL/L (3.5-5.3); SODIUM, SERUM 134 MMOL/L (135-148)
== END 2016-08-31 16:57 | DRG 853 ==
LOC: 1SO 23:19
PROVIDERS: Internal Medicine; Nurse Practitioner Family; Orthopaedic Surgery Orthopaedic Surgery of the Spine; Student in an Organized Health Care Education/Training Program
PROC: 0SG00A1 (ICD-10-PCS; principal; 2016-08-24 07:00)
PROC: 0SG00AJ Fusion of Lumbar Vertebral Joint with Interbody Fusion Device, Posterior Approach, Anterior Column, Open Approach (ICD-10-PCS; 2016-08-24 07:00)
PROC: 0ST20ZZ Resection of Lumbar Vertebral Disc, Open Approach (ICD-10-PCS; 2016-08-24 07:00)
PROC: 4A11X4G Monitoring of Peripheral Nervous Electrical Activity, Intraoperative, External Approach (ICD-10-PCS; 2016-08-24 07:00)
PROC: 8E0WXBG Computer Assisted Procedure of Trunk Region, With Computerized Tomography (ICD-10-PCS; 2016-08-24 07:00)
PROC: B246ZZ4 Ultrasonography of Right and Left Heart, Transesophageal (ICD-10-PCS; 2016-08-29)
PROC: 02HV33Z Insertion of Infusion Device into Superior Vena Cava, Percutaneous Approach (ICD-10-PCS; 2016-08-31)
PROC: 4A02X4A Measurement of Cardiac Electrical Activity, Guidance, External Approach (ICD-10-PCS; 2016-08-31)
DX: A41.81 Sepsis due to Enterococcus (principal); I33.0 Acute and subacute infective endocarditis; G93.41 Metabolic encephalopathy; E72.4 Disorders of ornithine metabolism; E87.1 Hypo-osmolality and hyponatremia; I10 Essential (primary) hypertension; D64.9 Anemia, unspecified; E11.9 Type 2 diabetes mellitus without complications; M43.16 Spondylolisthesis, lumbar region; R65.20 Severe sepsis without septic shock; M48.06 Spinal stenosis, lumbar region; I45.10 Unspecified right bundle-branch block; E03.9 Hypothyroidism, unspecified; E87.6 Hypokalemia; R21 Rash and other nonspecific skin eruption; E66.9 Obesity, unspecified; N40.0 Benign prostatic hyperplasia without lower urinary tract symptoms; K21.9 Gastro-esophageal reflux disease without esophagitis; B95.2 Enterococcus as the cause of diseases classified elsewhere; I25.10 Atherosclerotic heart disease of native coronary artery without angina pectoris; Z68.30 Body mass index [BMI] 30.0-30.9, adult; K22.70 Barrett's esophagus without dysplasia; E78.5 Hyperlipidemia, unspecified; G47.33 Obstructive sleep apnea (adult) (pediatric); Z87.891 Personal history of nicotine dependence; Z79.82 Long term (current) use of aspirin; Z79.02 Long term (current) use of antithrombotics/antiplatelets; Z79.891 Long term (current) use of opiate analgesic; Z79.84 Long term (current) use of oral hypoglycemic drugs; Z79.899 Other long term (current) drug therapy; Z88.6 Allergy status to analgesic agent; Z88.8 Allergy status to other drugs, medicaments and biological substances
CPT/HCPCS: 36415; 36569; 70450; 71010; 72148; 74176; 76376; 80048; 80053; 80170; 81001; 82140; 82570; 82607; 82746; 82962; 83036; 83735; 83880; 83935; 84100; 84132; 84145; 84300; 84484; 85025; 85610; 86850; 86870; 86900; 86901; 86905; 87040; 87077; 87150; 87186; 87641; 88304; 88311; 93005; 93306; 93312; 93320; 93325; 97110-GP; 97162-GP; 97166-GO; 97530-GP; 99285; A9270-GY; C1713; C1751; G8978-CL-GP; G8979-CJ-GP; G8987-CK-GO; G8988-CJ-GO; J0690; J1170; J1200; J1580; J1644; J2250; J2405; J2540; J2710; J3010; J3370